=== PATIENT | male | born 1935 | race Caucasian/White ===

== ENCOUNTER → 2017-01-29 | Outpatient (CLI) | payer MEDICARE, OTHER ==
[~2017-01-29] MED LIST: /WARF5TA; ALTA5CAP; AMLO5TAB; CO Q 10; COUMADIN; DIGO0.126; PRAV10TA2; TAMB100T
[2017-01-29 12:00] LABS: INR 1.34
== END ==
LOC: M LAB 11:17
PROVIDERS: ATTEND Pain Medicine Interventional Pain Medicine
DX: M96.1 Postlaminectomy syndrome, not elsewhere classified (principal); Z79.01 Long term (current) use of anticoagulants

== ENCOUNTER → 2017-01-30 | Outpatient (CLI) | payer MEDICARE, OTHER ==
[2017-01-30 10:20] LABS: INR 1.29
== END ==
LOC: M LAB 09:17
PROVIDERS: ATTEND Pain Medicine Interventional Pain Medicine
DX: M47.817 Spondylosis without myelopathy or radiculopathy, lumbosacral region (principal); Z79.01 Long term (current) use of anticoagulants

== ENCOUNTER → 2018-01-07 | Outpatient (CLI) | payer MEDICARE, OTHER ==
[2018-01-07 11:11] LABS: BASO % 0.5 % (0.0-1.0); EOS # 0.1 10^3/uL (0.0-0.50); EOS % 1.8 % (0.0-3.0); HEMATOCRIT 42.4 % (42.0-52.0); IMMATURE GRANULOCYTE % 0.2 % (0-3.0); LYMPH # 1.7 10^3/uL (1.5-4.5); LYMPH % 25.7 % (24.0-44.0); MEAN CORPUSCULAR HEMOGLOBIN 32.2 pg (27.0-33.0); MEAN CORPUSCULAR VOLUME 97.5 fl (80.0-96.0); MONO # 0.6 10^3/uL (0.0-0.8); MONO % 9.7 % (0.0-5.0); NEUTROPHILS # 4.1 10^3/uL (1.8-7.7); NEUTROPHILS % 62.1 % (36.0-66.0); PLATELET COUNT, AUTOMATED 202 10^3/uL (150-450); RED BLOOD COUNT 4.35 10^6/uL (4.30-6.10); RED CELL DISTRIBUTION WIDTH 15.2 % (11.5-14.5); WHITE BLOOD COUNT 6.6 10^3/uL (4.0-10.0)
[2018-01-07 11:25] LABS: C REACTIVE PROTEIN QUANTITATIV 1.22 MG/DL (0.00-0.30)
[2018-01-07 11:37] LABS: ERYTHROCYTE SEDIMENTATION RATE 4 mm/hr (0-20)
== END ==
LOC: M SMT 09:46
DX: M31.6 Other giant cell arteritis (principal)
CPT/HCPCS: 86140

== ENCOUNTER → 2018-05-18 | Outpatient (CLI) | payer MEDICARE, OTHER | LOC: M WUC 11:55 | DX: M50.11 Cervical disc disorder with radiculopathy, high cervical region (principal); M50.121 Cervical disc disorder at C4-C5 level with radiculopathy; M50.122 Cervical disc disorder at C5-C6 level with radiculopathy; M50.123 Cervical disc disorder at C6-C7 level with radiculopathy | CPT/HCPCS: 72052 ==

== ENCOUNTER → 2018-11-05 | Outpatient (REF) | payer MEDICARE, OTHER ==
[~2018-11-05] MED LIST changes: -/WARF5TA; +CART240C3; +COUM1TAB17; +FLEC100T; +FURO20TA2; +LISINOPRIL-HCTZ; +ROSU5TAB4; -TAMB100T; +TERA1CAP3; +TRAM50TA2 PO; +WARF-23; +ZYLO300T6
[2018-11-05 14:15] LABS: APPEARANCE, URINE CLEAR (CLEAR); BACTERIA, URINE AUTO NEGATIVE (NEGATIVE); BILIRUBIN, URINE AUTO NEGATIVE (NEGATIVE); BLOOD, URINE BLOOD 1+ (NEGATIVE); COLOR, URINE YELLOW (YELLOW); GLUCOSE, URINE (UA) AUTO NEGATIVE (NEGATIVE); KETONE, URINE AUTO NEGATIVE (NEGATIVE); LEUKOCYTE ESTERASE, URINE AUTO NEGATIVE (NEGATIVE); NITRITE, URINE AUTO NEGATIVE (NEGATIVE); PROTEIN, URINE AUTO NEGATIVE (NEGATIVE); RBC, URINE AUTO 6 /HPF (0-3); SPECIFIC GRAVITY URINE AUTO 1.012 (1.002-1.035); SQUAMOUS EPITHELIAL CELL UR AU 0 /HPF (0-6); WBC, URINE AUTO 0 /HPF (0-3)
== END ==
LOC: M SMT 13:08
PROVIDERS: ATTEND Nurse Practitioner Family
DX: R82.8 Abnormal findings on cytological and histological examination of urine (principal)
CPT/HCPCS: 81001; 87086; 88108; G0463

== ENCOUNTER → 2018-11-08 | Outpatient (CLI) | payer MEDICARE, OTHER ==
[~2018-11-08] MED LIST changes: +/WARF5TA; -COUM1TAB17; -FLEC100T; +TAMB100T
== END ==
LOC: M WUC 13:54
PROVIDERS: ATTEND Nurse Practitioner Family
DX: Z85.46 Personal history of malignant neoplasm of prostate (principal)

== ENCOUNTER 2018-11-09 10:22 | Emergency (ER) | payer MEDICARE, OTHER ==
[~2018-11-09] VITALS: Ht 172.7 cm; Wt 86.4 kg
[~2018-11-09 10:22] MED LIST changes: -CART240C3; -FURO20TA2; -LISINOPRIL-HCTZ; -ROSU5TAB4; -TERA1CAP3; -TRAM50TA2 PO; -WARF-23; -ZYLO300T6
[2018-11-09] MEDS ORDERED: LISINOPRIL-HCTZ (10:34)
[2018-11-09] MEDS ORDERED: TRAM50TA2 PO (10:35)
[2018-11-09] MEDS ORDERED: ZYLO300T6 (10:35)
[2018-11-09] MEDS ORDERED: TERA1CAP3 (10:35)
[2018-11-09] MEDS ORDERED: ROSU5TAB4 (10:35)
[2018-11-09] MEDS ORDERED: WARF-23 (10:35)
[2018-11-09] MEDS ORDERED: CART240C3 (10:35)
[2018-11-09] MEDS ORDERED: FURO20TA2 (10:35)
[2018-11-09 11:24] LABS: BASO % 0.2 % (0.0-1.0); EOS # 0.1 10^3/uL (0.0-0.50); EOS % 1.2 % (0.0-3.0); HEMATOCRIT 41.1 % (42.0-52.0); HEMOGLOBIN 13.6 g/dl (13.5-17.5); LYMPH # 1.1 10^3/uL (1.5-4.5); LYMPH % 9.5 % (24.0-44.0); MEAN CORPUSCULAR HGB CONC 33.1 g/dl (32.0-36.5); MEAN CORPUSCULAR VOLUME 96.7 fl (80.0-96.0); MONO # 0.9 10^3/uL (0.0-0.8); MONO % 7.6 % (0.0-5.0); NEUTROPHILS # 9.1 10^3/uL (1.8-7.7); NEUTROPHILS % 81.1 % (36.0-66.0); PLATELET COUNT, AUTOMATED 273 10^3/uL (150-450); RED BLOOD COUNT 4.25 10^6/uL (4.30-6.10); WHITE BLOOD COUNT 11.2 10^3/uL (4.0-10.0)
--- NOTE | 2018-11-09 11:33 | ECGEPIP ---
Stationary ECG Study [facility] - ED Test Date: 2018-11-09 Pat Name: JESSICA MALDONADO Department: Room: - Gender: M Tube Former Operator: deng : 1935 Requested By: Cristhian Carlisle Order Number: [id number] Reading MD: Kacy Iniguez Measurements Intervals [place] Rate: 68 P: [place]: 0 QRS: 34 QRSD: 144 T: -8 QT: 463 QTc: 493 Interpretive Statements ATRIAL FIBRILLATION RIGHT BUNDLE BRANCH BLOCK NO PRIOR FOR COMPARISON Electronically Signed On 11-09-2018 11:33:34 EDT by Kacy Iniguez
[2018-11-09 11:36] LABS: INR 2.03; PROTHROMBIN TIME 23.3 SECONDS (12.1-14.4)
--- NOTE | 2018-11-09 11:45 | REP ---
CT Head without contrast HISTORY: Syncope COMPARISON: None Areas of decreased attenuation are present in the periventricular white matter. This represents small-vessel ischemic disease. There is no intraparenchymal hemorrhage, acute infarct, mass or midline shift. The ventricular system and cortical sulci as well as subarachnoid space in the posterior fossa are dilated consistent with mild volume loss. There is no extra cerebral collection. There is no fracture. The visualized sinuses are clear. IMPRESSION: 1. Small vessel ischemic disease. 2. Mild volume loss. Electronically Signed by Milton Becker MD 11/09/2018 11:36 A
[2018-11-09 12:05] LABS: CALCIUM LEVEL 8.6 MG/DL (8.8-10.2); CREATININE FOR GFR 1.24 MG/DL (0.70-1.30); MB/CK RELATIVE INDEX 2.7 (< OR =4); POTASSIUM SERUM 3.4 MEQ/L (3.5-5.1); THYROID STIMULATING HORMONE 4.19 uIU/ML (0.358-3.740); TROPONIN I 0.08 NG/ML (< 0.10)
--- NOTE | 2018-11-09 12:22 | REP ---
Chest one-view HISTORY: Syncope Comparison: 12/29/2016 The lungs are clear. The heart is normal in size. The pulmonary vasculature is normal in appearance. Impression: No acute disease. Electronically Signed by Milton Becker MD 11/09/2018 12:14 P
[2018-11-09 14:43] LABS: MB/CK RELATIVE INDEX 3.06 (< OR =4); TROPONIN I 0.06 NG/ML (< 0.10)
--- NOTE | 2018-11-09 15:19 | ECGEPIP ---
Stationary ECG Study [facility] - ED Test Date: 2018-11-09 Pat Name: JESSICA MALDONADO Department: Room: - Gender: M Paste Up Artist: deng : 1935 Requested By: Cristhian Carlisle Order Number: [id number] Reading MD: Kacy Iniguez Measurements Intervals [place] Rate: 76 P: [place]: 0 QRS: 150 QRSD: 145 T: -29 QT: 441 QTc: 498 Interpretive Statements ATRIAL FIBRILLATION INDETERMINATE AXIS RIGHT BUNDLE BRANCH BLOCK INCREASED RATE 11/09/18 10:49 Electronically Signed On 11-09-2018 15:19:46 EDT by Kacy Iniguez
[2018-11-09 15:30] VITALS: BP 134/70
== END 2018-11-09 15:33 | disposition home or self-care (01) ==
LOC: M ED 10:22
DX: R55 Syncope and collapse (principal); I48.91 Unspecified atrial fibrillation; I67.82 Cerebral ischemia; I45.10 Unspecified right bundle-branch block; K21.9 Gastro-esophageal reflux disease without esophagitis; N40.0 Benign prostatic hyperplasia without lower urinary tract symptoms; G47.33 Obstructive sleep apnea (adult) (pediatric); Z85.46 Personal history of malignant neoplasm of prostate; Z87.81 Personal history of (healed) traumatic fracture; Z88.8 Allergy status to other drugs, medicaments and biological substances; Z79.899 Other long term (current) drug therapy; Z79.01 Long term (current) use of anticoagulants

== ENCOUNTER → 2018-11-24 | Outpatient (CLI) | payer MEDICARE, OTHER ==
[~2018-11-24] MED LIST changes: -/WARF5TA; +CART240C3; +COUM1TAB17; +FLEC100T; +FURO20TA2; +ISOVUE-370 76% 125ML VIAL (Q9967 PER ML) As Ordered ONE; +LISINOPRIL-HCTZ; +ROSU5TAB4; -TAMB100T; +TERA1CAP3; +TRAM50TA2 PO; +WARF-23; +ZYLO300T6
--- NOTE | 2018-11-24 14:27 | REP ---
Clinical: Hematuria. Technique: Precontrast, contrast enhanced, and delayed images of the abdomen and pelvis using 100 ml Isovue 370 intravenous contrast material with coronal and sagittal re-formations as well as 3-D urogram. Findings: Right kidney demonstrates age-related cortical thinning along with renovascular calcifications and 2 cm and 1.5 cm simple cysts along with fewer sub centimeter hypodensities also likely representing small cysts. No hydroureteronephrosis, acute perinephric stranding, or nephroureterolithiasis appreciated. The left kidney demonstrates mild cortical thinning along with few simple cysts ranging in size from 1 cm at the lower pole to 6.1 cm along the posterior aspect of the mid/upper pole. Few nonobstructing intrarenal calculi are identified including 2.5 mm upper pole, 4.5 mm mid pole, and 1 mm lower pole calculi without acute perinephric stranding, hydroureteronephrosis or obstructing ureteral calculi. Delayed images demonstrate normal bilateral collecting system including ureters and bladder. The patient appears to be status post prostate seeding. Liver, spleen, and bilateral adrenal glands are normal. The pancreas is relatively normal although cystic changes at the head/uncinate process measuring 4.3 cm are identified and cannot be further classified or evaluated. The patient is known to be status post cholecystectomy. Evaluation of the enteric system demonstrates small hiatal hernia along with diffuse diverticulosis. No evidence for bowel obstruction or acute inflammatory process. No ascites. No adenopathy. Atherosclerotic changes to the aorta and vasculature without aortic aneurysm or dissection. Osseous structures demonstrate degenerative changes. Lung bases demonstrate bibasilar linear fibroatelectatic changes. Impression: 1. Urinary tract system demonstrates age-related cortical thinning along with bilateral cysts and left-sided nonobstructing calculi as detailed above. No hydroureteronephrosis or obstructing ureteral calculi appreciated. Bladder is essentially normal. 2. Diverticulosis. 3. Lobulated cystic area at the head of the pancreas measuring 4.3 cm maximal diameter. Differential diagnosis would include pseudocyst, benign cyst as well as possible cystic pancreatic neoplasm which cannot be excluded. 4. Small hiatal hernia. Electronically Signed by Zeb Antonio MD 11/24/2018 02:19 P
== END ==
LOC: M RAD 12:41
PROVIDERS: ATTEND Nurse Practitioner Family
DX: N28.89 Other specified disorders of kidney and ureter (principal); N28.1 Cyst of kidney, acquired; K44.9 Diaphragmatic hernia without obstruction or gangrene; K57.92 Diverticulitis of intestine, part unspecified, without perforation or abscess without bleeding; R93.5 Abnormal findings on diagnostic imaging of other abdominal regions, including retroperitoneum
CPT/HCPCS: 74178; Q9967

== ENCOUNTER → 2018-12-20 | Outpatient (REF) | payer MEDICARE, OTHER ==
[~2018-12-20] MED LIST changes: -ISOVUE-370 76% 125ML VIAL (Q9967 PER ML) As Ordered ONE
[2018-12-20 13:39] LABS: APPEARANCE, URINE CLEAR (CLEAR); BACTERIA, URINE AUTO NEGATIVE (NEGATIVE); BILIRUBIN, URINE AUTO NEGATIVE (NEGATIVE); BLOOD, URINE BLOOD NEGATIVE (NEGATIVE); COLOR, URINE YELLOW (YELLOW); GLUCOSE, URINE (UA) AUTO NEGATIVE (NEGATIVE); KETONE, URINE AUTO NEGATIVE (NEGATIVE); LEUKOCYTE ESTERASE, URINE AUTO NEGATIVE (NEGATIVE); MUCUS, URINE SMALL (NEGATIVE); NITRITE, URINE AUTO NEGATIVE (NEGATIVE); PROTEIN, URINE AUTO NEGATIVE (NEGATIVE); RBC, URINE AUTO 6 /HPF (0-3); SQUAMOUS EPITHELIAL CELL UR AU 0 /HPF (0-6); WBC, URINE AUTO 0 /HPF (0-3)
== END ==
LOC: M SMT 12:46
PROVIDERS: ATTEND Nurse Practitioner Family
DX: R31.29 Other microscopic hematuria (principal)

== ENCOUNTER → 2019-01-15 | Outpatient (CLI) | payer MEDICARE, OTHER ==
--- NOTE | 2019-01-18 09:32 | REP ---
MRCP: MRCP exam is accomplished utilizing multiple heavily T2-weighted sequences in the axial and coronal planes. MIP reconstruction images are performed. Correlation made with prior CT 11/24/2018. The patient has had a prior cholecystectomy. There is slight dilatation of the common bile duct as expected measuring 8 mm in maximum diameter. Questionable 3 mm filling defect in the proximal common bile duct could represent a tiny stone. There is no pancreatic duct dilatation. In the visualized liver, there is a hyperintense nodule on the T2-weighted images in the inferior left lobe 9 mm in diameter probably representing a small cyst or hemangioma. Visualized spleen and adrenals are unremarkable. In the pancreatic head, there is a lobulated, loculated septated cyst measuring 2.7 x 2.8 x 4.2 cm. Visualized kidneys demonstrate multiple bilateral cysts, largest is in the left upper pole posteriorly measuring approximately 6.1 cm in maximum diameter. No significant adenopathy is visualized. No free fluid is seen in the abdomen. IMPRESSION: Lobulated, loculated septated cystic mass involving the pancreatic head as discussed above. Differential diagnosis would include cystic neoplasm versus pseudocyst. Further characterization could be made with MRI with contrast. Status post cholecystectomy without significant biliary or pancreatic duct dilatation. In the inferior left lobe of the liver, there is a hyperintense nodule on T2-weighted images 9 mm in diameter probably representing a small cyst or hemangioma. Multiple bilateral renal cysts. Electronically Signed by Moses Anderson MD 01/18/2019 10:08 A
== END ==
LOC: M RAD 12:42
PROVIDERS: ATTEND Internal Medicine
DX: D37.8 Neoplasm of uncertain behavior of other specified digestive organs (principal); Z90.49 Acquired absence of other specified parts of digestive tract; K76.89 Other specified diseases of liver; N28.1 Cyst of kidney, acquired

== ENCOUNTER 2019-06-27 12:14 | Inpatient (IN) | payer MEDICARE, OTHER ==
[~2019-06-27] VITALS: Ht 175.3 cm; Wt 88.2 kg
[~2019-06-27 12:14] MED LIST changes: -CART240C3; +CART240C3 PO; -FURO20TA2; +FURO20TA2 PO; -ROSU5TAB4; +ROSU5TAB5; -TERA1CAP3; +TERA1CAP3 PO; -WARF-23; +WARF-23 PO; -ZYLO300T6; +ZYLO300T6 PO
[2019-06-27] MEDS ORDERED: POTA20TA6 PO (12:32)
[2019-06-27] MEDS ORDERED: REST0.05 OU (12:32)
[2019-06-27] MEDS ORDERED: ICAPCAP2 PO (12:32)
[2019-06-27 13:14] LABS: BASO % 0.2 % (0.0-1.0); EOS % 0.1 % (0.0-3.0); HEMATOCRIT 47.8 % (42.0-52.0); HEMOGLOBIN 15.3 g/dl (13.5-17.5); LYMPH # 0.8 10^3/uL (1.5-5.0); LYMPH % 4.1 % (24.0-44.0); MEAN CORPUSCULAR HEMOGLOBIN 32.2 pg (27.0-33.0); MEAN CORPUSCULAR VOLUME 100.6 fl (80.0-96.0); MONO # 0.8 10^3/uL (0.0-0.8); MONO % 4.3 % (0.0-5.0); NEUTROPHILS % 90.8 % (36.0-66.0); PLATELET COUNT, AUTOMATED 208 10^3/uL (150-450); RED BLOOD COUNT 4.75 10^6/uL (4.30-6.10); WHITE BLOOD COUNT 18.7 10^3/uL (4.0-10.0)
[2019-06-27 13:15] LABS: INR 2.59; PROTHROMBIN TIME 27.6 SECONDS (11.8-14.0)
[2019-06-27 13:16] LABS: PARTIAL THROMBOPLASTIN TIME 37.3 SECONDS (25.0-38.4)
[2019-06-27 13:27] LABS: ALBUMIN 3.6 GM/DL (3.2-5.2); ALT/SGPT 21 U/L (12-78); BILIRUBIN,DIRECT 0.5 MG/DL (0.0-0.2); BILIRUBIN,TOTAL 1.4 MG/DL (0.2-1.0); BLOOD UREA NITROGEN 22 MG/DL (7-18); CALCIUM LEVEL 9.3 MG/DL (8.8-10.2); CARBON DIOXIDE LEVEL 29 MEQ/L (21-32); CHLORIDE LEVEL 105 MEQ/L (98-107); CREATININE FOR GFR 1.17 MG/DL (0.70-1.30); GLOMERULAR FILTRATION RATE > 60.0 (>35); GLUCOSE, FASTING 126 MG/DL (70-100); LIPASE 70 U/L (73-393); POTASSIUM SERUM 3.5 MEQ/L (3.5-5.1); SODIUM LEVEL 142 MEQ/L (136-145); TOTAL PROTEIN 6.5 GM/DL (6.4-8.2)
[2019-06-27] MEDS: NS 1,000 ML IV SCH ×5 (13:28→20:08)
[2019-06-27] MEDS ORDERED: PANTOPRAZOLE 40MG INJ (PROTONIX) (C9113) IV ONE (13:30)
[2019-06-27] MEDS ORDERED: ISOVUE-370 76% 100ML VIAL (Q9967) As Ordered ONE (13:36)
[2019-06-27] MEDS ORDERED: COQ1200C3 PO (14:04)
[2019-06-27] MEDS ORDERED: WARF-23 PO (14:04)
[2019-06-27] MEDS ORDERED: LISI20TA19 PO (14:04)
--- NOTE | 2019-06-27 14:24 | REP ---
CT ABDOMEN AND PELVIS WITH IV BUT WITHOUT ORAL CONTRAST: HISTORY: Left-sided abdomen pain. Rectal bleeding. Comparison CT study November 24, 2018. The patient gives a history prostate carcinoma. CT contrast dose: 100 mL of intravenous Isovue 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 There are clips in the right upper quadrant post cholecystectomy. The liver and the spleen are normal in size homogeneous in texture. Cardiomegaly is observed. No adrenal mass is observed on either side. The right kidney shows moderate atrophy. There are bilateral renal cortical cysts. The largest cyst is at the upper pole of the left kidney measuring 7.1 cm in greatest diameter. Vascular calcification is noted in the renal arteries on the right. There is an intrarenal calculus in the upper pole of the left kidney measuring 4 mm in greatest diameter. No hydronephrosis is seen on either side. A larger calculus is seen in the lower pole collecting system of the left kidney. This calculus measures 6 mm in diameter. A 2 mm calculus is also noted in the lower pole collecting system of the left kidney. Previously noted pancreatic head cystic lesion is again visible. This is essentially unchanged measuring 4.1 cm in greatest diameter. No focal hepatic lesion is seen. There is a tiny left lobe hepatic cyst. Vascular calcification is seen in the aorta and its branches. No aneurysm is seen. There is left colonic diverticulosis. There is an elongate area of mural thickening with some pericolonic stranding in the distal descending, mid descending and sigmoid segment of the colon. This may reflect diverticulitis or enterocolitis. No abscess or free air is seen. No evidence of large or small bowel obstruction noted. No abdominal wall defect is seen. There are prostate seeds noted in place. Seminal vesicles and urinary bladder are unremarkable. No bony destructive lesion is appreciated. IMPRESSION: Mural thickening and diverticulosis in the left colon. Enterocolitis versus diverticulitis. No abscess or free air. Intrarenal nephrolithiasis left kidney without hydronephrosis. Stable pancreatic head cystic lesion. Electronically Signed by Yves Hayes MD 06/27/2019 06:50 P
[2019-06-27] MEDS ORDERED: ERTAPENEM SODIUM 1 GM in NS MINI-BAG PLUS 50 ML IV ONE (14:30)
[2019-06-27] MEDS ORDERED: traMADol 50 MG TAB PO PRN (15:15)
[2019-06-27] MEDS ORDERED: MAALOX 30 ML SUSP *UDC PO PRN (15:15)
[2019-06-27] MEDS ORDERED: ACETAMINOPHEN TAB 650MG DOSE (2X325MG) PO PRN (15:15)
[2019-06-27] MEDS ORDERED: MOM 30ML SUSPENSION UDC PO PRN (15:15)
--- NOTE | 2019-06-27 15:30 | HPEPDOC ---
General Date of Admission 06/27/19 Date of Service: Jun 27, 2019 Chief Complaint The patient is a 84-year-old male admitted with a reason for visit of Gi Bleeding. Home Medications Scheduled Allopurinol (Zyloprim) 300 Mg Tab, 300 MG PO QPM, (Reported) Cyclosporine (Restasis) 0.05% Droperette, 1 DROP OU BID, (Reported) Diltiazem HCl (Cartia Xt) 240 Mg Cap, 240 MG PO DAILY, (Reported) TAKES AT NOON Furosemide (Furosemide) 20 Mg Tab, 20 MG PO DAILY, (Reported) Lisinopril/Hydrochlorothiazide (Lisinopril-Hctz 20-12.5 mg Tab) 1 Each Tablet, 1 TAB PO BID, (Reported) Potassium Chloride (Potassium Chloride) 20 Meq Tab.er.prt, 20 MEQ PO DAILY, (Reported) Terazosin HCl (Terazosin HCl) 1 Mg Cap, 1 MG PO QPM, (Reported) Ubidecarenone (Co Q10) 200 Mg Capsule, 200 MG PO DAILY, (Reported) Vit A/Vit C/Vit E/Zinc/Copper (Icaps Areds Softgel) 1 Each Capsule, 1 CAP PO DAILY, (Reported) Warfarin Sodium (Warfarin Sodium) 5 Mg Tab, 5 MG PO 3XW, (Reported) QPM: MON, WED, FRI Warfarin Sodium (Warfarin Sodium) 5 Mg Tablet, 2.5 MG PO 4XWK, (Reported) QPM: SUN, TUES, THURS, SAT Scheduled PRN Tramadol HCl (Tramadol HCl) 50 Mg Tab, 50 MG PO TID PRN for PAIN, (Reported) Allergies Coded Allergies: doxazosin (Verified Allergy, Unknown, 06/27/19) Past Medical History Medical History Prostate cancer, radiation proctitis, atrial fibrillation, hypertension, gout Surgical History States CA laminectomy, partial cystectomy, right TKA, left TKA Social History * Smoker: Denies Alcohol: Denies Drugs: denies A-FIB/CHADSVASC A-FIB History Current/History of A-Fib/PAF?: Yes Current PO Anticoag Therapy: Yes Review of Systems Constitutional: Denies: Chills, Fever, Malaise, Night Sweats, Weakness, Fatigue, Weight Loss, Lethargy, Other Eyes: Denies: Pain, Vision change, Conjunctivae inflammation, Eyelid inflamm ation, Redness, Other ENT: Denies: Head Aches, Ear Pain, Dysphagia, Sinus Congestion, Post Nasal Drip, Sore Throat, Epistaxis, Other Symptoms Pulmonary: Denies: Dyspnea, Cough, Pleuritic Chest Pain, Other Symptoms Cardiovascular: Denies: Chest Pain, Palpitations, Orthopnea, Paroxysmal Noc. Dyspnea, Edema, Lt Headedness, Other Symptoms Gastrointestinal: Reports: Abdominal Pain, Other Symptoms (right great blood per rectum) Hematologic: Denies: Bruising, Bleeding Excessively, Petecchia, Purpura, Enlarged Lymph Nodes, Other Hematologic Endocrine: Denies: Polydipsia, Polyphagia, Polyuria, Heat Intolerance, Cold Intolerance, Other Endocrine Sx Musculoskeletal: Denies: Neck Pain, Back Pain, Shoulder Pain, Arm Pain, Hand Pain, Leg Pain, Foot Pain, Joint Pain, Muscle Pain, Spasms, Other Symptoms Neurological: Denies: Weakness, Numbness, Incoordination, Change in speech, Confusion, Seizures, Other Symptoms Psych: Denies: Mood Normal, Anxiety, Depression, Memory Issues, Thoughts of Self Harm, Anger, Thoughts of Harming Other, Other Psych Physical Examination General Exam: Positive: Alert, Cooperative Eye Exam: Positive: PERRLA, Conjunctiva & lids normal ENT Exam: Positive: Atraumatic, Mucous membr. moist/pink Neck Exam: Positive: Supple Chest Exam: Positive: Clear to auscultation, Normal air movement Heart Exam: Positive: Rate Normal, Normal S1, Normal S2 Abdomen Exam: Positive: Normal bowel sounds, Soft, Tenderness (. Also tenderness of right lower quadrant on deep palpation. No rebound tenderness) Extremity Exam: Positive: Normal pulses Skin Exam: Positive: Nl turgor and temperature Neuro Exam: Positive: Strength at 5/5 X4 ext, Sensation Intact Psych Exam: Positive: Mental status NL, Mood NL, Oriented x 3 Vital Signs Vital Signs Date Time Temp Pulse Resp B/P (MAP) Pulse Ox O2 Delivery O2 Flow Rate FiO2 06/27/19 12:30 Room Air 06/27/19 12:30 06/27/19 12:14 96.1 52 20 99 Laboratory Data Labs 24H Laboratory Tests 2 06/27/19 12:31: Prothrombin Time 27.6H, Prothromb Time International Ratio 2.59, Activated Partial Thromboplast Time 37.3 06/27/19 12:45: Immature Granulocyte % (Auto) 0.5, Neutrophils (%) (Auto) 90.8H, Lymphocytes (%) (Auto) 4.1L, Monocytes (%) (Auto) 4.3, Eosinophils (%) (Auto) 0.1, Basophils (%) (Auto) 0.2, Neutrophils # (Auto) 17.0H, Lymphocytes # (Auto) 0.8L, Monocytes # (Auto) 0.8, Eosinophils # (Auto) 0.0, Basophils # (Auto) 0.0, Nucleated Red Blood Cells % (auto) 0.0 06/27/19 13:00: Anion Gap 8, Glomerular Filtration Rate > 60.0, Calcium Level 9.3, Total Bilirubin 1.4H, Direct Bilirubin 0.5H, Aspartate Amino Transf (AST/SGOT) 24, Alanine Aminotransferase (ALT/SGPT) 21, Alkaline Phosphatase 94, Total Protein 6.5, Albumin 3.6, Albumin/Globulin Ratio 1.24, Lipase 70L CBC/BMP Laboratory Tests 06/27/19 12:45 06/27/19 13:00 Problems (1) Diverticulitis Status: Acute Problem Text: 84 years old white male with past medical history of CA prostate status post radiation proctitis, hypertension, atrial fibrillation on Coumadin, developed right lower quadrant pain along with passage of bright red blood per rectum since this morning. Patient has a history of radiation proctitis and also CT of the abdomen and pelvis was consistent with possible acute diverticulitis/enterocolitis. Patient also on anticoagulation with Coumadin, which can because of diverticular bleed as well. Dr. Saenz was called from ED and has recommended to admit patient. Hold Coumadin and he will perform possible: Colonoscopy in 2-3 days Admit patient to [facility] with telemetry. Considering history of A. fib and acute GI bleed Continue director apparel CBC after 6 hours CBC in a.m. 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
--- NOTE | 2019-06-27 16:36 | ECGEPIP ---
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
--- NOTE | 2019-06-27 17:43 | CR.PDOC ---
General Date of Consultation: Jun 27, 2019 Referring Provider: BALAJI LING MD Attending Physician: GEORGIA CONWAY MD Consultation Primary physician/ hospitalist: Dr. Ling / Dr. Santos Alvarenga Reason for consult: Recal bleeding. HPI: 84-year-old male patient with history of prostate cancer s/p radiation therapy, complicated by radiation proctitis, HTN, atrial fibrillation on Coumadin, gout, presented to ER for complaints of bright red blood per rectum. GI was consulted for the same. Patient reports his symptoms started this morning, with multiple bloody, diarrheal bowel movements, up to 8 bowel movements today, associated with moderate to severe left lower quadrant abdominal pain. Patient denies any dizziness, loss of conscious ness and no sick contacts or recent travel. Patient does report having a dental procedure recently for which he has to stop his anticoagulation for few days. Pertinent negative GI symptoms: Patient denies nausea, vomiting, loss of appetite, early satiety or unintentional weight loss. No history of hematemesis. Review of Systems: GI: as stated above CVS: No chest pain, No palpitations, No leg swelling. RS: No Shortness of breath, No Wheezing, no cough NETWORK DESKTOP SUPPORT SPECIALIST: No dizziness, No motor weakness, No sensory problems Hematology: No bruising, No gum bleeding, Musculoskeletal: No joint pain, ambulating well. Skin: No rash : No hematuria, No burning sensation of the urine ENT: No ear discharge/ pain, No dysphagia. Eyes: No photophobia. Home medications: reviewed. Antithrombotic agents - Coumadin Medical h/o: As above. Surgical h/o: Cholecystectomy. Social h/o: Alcohol-denies, tobacco-denies , IVDA/ drugs-denies. Family h/o of GI cancers -noncontributory Prior Endoscopies: Previously had EGD and colonoscopy at [place] by Dr. Georgette Hopkins -- noted to have barretts in last EGD done in October 2018. ( other reports not available, but patient reports his colonoscopy showed small polyp and he was told no need to repeat the Colonoscopy due to his age.) Prior GI evaluation: None In [facility]. Exam: Vitals: reviewed General: Alert and oriented x 3, not in distress HEENT: NO pallor, no icterus. Normal oropharynx, NO cervical lymph nodes. Chest: symmetric with bilateral clear air entry, CVS: S1, S2 heard, normal, no murmurs . Abdomen: non-distended, no surgical scars, soft, minimal tenderness in left lower quadrant, no palpable masses, normal bowel sounds heard. Rectal exam: Patient refused / Deferred at this time in view of scheduled colonoscopy. Extremities: no pedal edema, pulses palpable. NETWORK DESKTOP SUPPORT SPECIALIST: no focal motor or sensory deficits. Moves all extremities Skin: no rash. Labs: reviewed.. Imaging tests: reviewed CT abdomen with IV contrast : Reported to me oral thickening and diverticulosis in the left colon, suspected enterocolitis versus diverticulitis. Impression: - Acute onset rectal bleeding with left lower quadrant abdominal pain and CT scan showing mural thickening -- DDx-- Likely ischemic colitis vs Infectious colitis vs Less likely Diverticular bleeding vs Colon polyps. Recommendations: - Patient educated about the test results, possible differential diagnoses and All questions answered. - Adequate oral and IV hydration. Avoid Hypotension. - Keep on Clear liquid diet. - Obtain stool testing for infectious panel. - Give empiric antibiotics- consider Ciprofloxacin and metronidazole if not contraindicated. - Monitor H/H and transfuse if needed to maintain hemoglobin levels around 8 gm/dL. - Discussed the risks and benefits of anticoagulation. Will hold Coumadin for now fo 1-2 days with close monitoring of INR. To resume Coumadin after 2 days to avoid sub-therapeutic INR. - Will consider Colonoscopy work up based on the clinical course. - The procedure, indications, risks (bleeding, perforation, infection, hypotension, respiratory depression, allergy, need for endotracheal intubation, surgery, colostomy, cardiac arrest, even ), benefits, limitations (e.g., missing a lesion), and all other alternatives (including no intervention) were explained to the patient who understood and agreed for the procedure. Plan of care discussed with patient and primary team. Patient verbalized understanding and agreed with the plan. Vital Signs/I&O Vital Signs Date Time Temp Pulse Resp B/P (MAP) Pulse Ox O2 Delivery O2 Flow Rate FiO2 06/27/19 16:12 92 210/98 06/27/19 12:30 Room Air 06/27/19 12:14 96.1 20 99 Laboratory Data CBC/BMP Laboratory Tests 06/27/19 12:45 06/27/19 13:00 Allergies Coded Allergies: doxazosin (Verified Allergy, Unknown, 06/27/19) Home Medications Scheduled Allopurinol (Zyloprim) 300 Mg Tab, 300 MG PO QPM, (Reported) Cyclosporine (Restasis) 0.05% Droperette, 1 DROP OU BID, (Reported) Diltiazem HCl (Cartia Xt) 240 Mg Cap, 240 MG PO DAILY, (Reported) TAKES AT NOON Furosemide (Furosemide) 20 Mg Tab, 20 MG PO DAILY, (Reported) Lisinopril/Hydrochlorothiazide (Lisinopril-Hctz 20-12.5 mg Tab) 1 Each Tablet, 1 TAB PO BID, (Reported) Potassium Chloride (Potassium Chloride) 20 Meq Tab.er.prt, 20 MEQ PO DAILY, (Reported) Terazosin HCl (Terazosin HCl) 1 Mg Cap, 1 MG PO QPM, (Reported) Ubidecarenone (Co Q10) 200 Mg Capsule, 200 MG PO DAILY, (Reported) Vit A/Vit C/Vit E/Zinc/Copper (Icaps Areds Softgel) 1 Each Capsule, 1 CAP PO DAILY, (Reported) Warfarin Sodium (Warfarin Sodium) 5 Mg Tab, 5 MG PO 3XW, (Reported) QPM: MON, WED, FRI Warfarin Sodium (Warfarin Sodium) 5 Mg Tablet, 2.5 MG PO 4XWK, (Reported) QPM: SUN, TUES, THURS, SAT Scheduled PRN Tramadol HCl (Tramadol HCl) 50 Mg Tab, 50 MG PO TID PRN for PAIN, (Reported) GEORGIA CONWAY MD Jun 27, 2019 17:43
[2019-06-27 19:05] VITALS: BP 175/79
[2019-06-27] MEDS: TERAZOSIN 1 MG CAP PO SCH (20:52)
[2019-06-27] MEDS: ALLOPURINOL 300 MG TAB PO SCH (20:52)
[2019-06-27] MEDS: DOCUSATE SODIUM 100 MG CAP PO SCH (20:52)
[2019-06-27 22:00] VITALS: BP 168/81
[2019-06-28] MEDS: NS 1,000 ML IV SCH ×2 (00:42→17:36)
[2019-06-28 02:52] LABS: MAGNESIUM LEVEL 1.8 MG/DL (1.8-2.4)
[2019-06-28 04:00] VITALS: BP 155/85
[2019-06-28 06:00] VITALS: BP 158/85
[2019-06-28 07:00] LABS: HEMATOCRIT 41.1 % (42.0-52.0); HEMOGLOBIN 13.5 g/dl (13.5-17.5); MEAN CORPUSCULAR HEMOGLOBIN 31.7 pg (27.0-33.0); MEAN CORPUSCULAR HGB CONC 32.8 g/dl (32.0-36.5); MEAN CORPUSCULAR VOLUME 96.5 fl (80.0-96.0); PLATELET COUNT, AUTOMATED 185 10^3/uL (150-450); RED BLOOD COUNT 4.26 10^6/uL (4.30-6.10); WHITE BLOOD COUNT 14.9 10^3/uL (4.0-10.0)
[2019-06-28 07:11] LABS: INR 2.84; PROTHROMBIN TIME 29.7 SECONDS (11.8-14.0)
[2019-06-28 07:45] LABS: BLOOD UREA NITROGEN 17 MG/DL (7-18); CALCIUM LEVEL 8.2 MG/DL (8.8-10.2); CARBON DIOXIDE LEVEL 29 MEQ/L (21-32); CHLORIDE LEVEL 106 MEQ/L (98-107); CREATININE FOR GFR 0.87 MG/DL (0.70-1.30); GLOMERULAR FILTRATION RATE > 60.0 (>35); GLUCOSE, FASTING 108 MG/DL (70-100); POTASSIUM SERUM 2.8 MEQ/L (3.5-5.1); SODIUM LEVEL 142 MEQ/L (136-145)
[2019-06-28] MEDS: DOCUSATE SODIUM 100 MG CAP PO SCH ×2 (09:00→21:13)
[2019-06-28] MEDS: CIPROFLOXACIN 400 MG in IV 1 EA IV SCH ×2 (09:04→21:13)
[2019-06-28] MEDS: CO-ENZYME Q10 50 MG CAP PO SCH (09:04)
[2019-06-28 10:00] VITALS: BP_SYST 142; BP_SYST 168; BP_DIAS 67; BP_DIAS 81
[2019-06-28] MEDS: metroNIDAZOLE 500 MG in IV 1 EA IV SCH ×2 (10:15→17:36)
--- NOTE | 2019-06-28 11:13 | IPNPDOC ---
Subjective Date Seen The patient was seen on 06/28/19. Subjective Chief Complaint/HPI Patient is slightly better but is still complaining of abdominal pain General: Denies: ROS Unobtainable, Chills, Night Sweats, Fatigue, Malaise, Normal Appetite, Other Symptoms Constitutional: Denies: Chills, Fever, Malaise, Night Sweats, Weakness, Fatigue, Weight Loss, Lethargy, Other Skin: Denies: Rash, Lesions, Jaundice, Bruising, Itching, Dry, Breakdown, Nail Changes, Other Pulmonary: Denies: Dyspnea, Cough, Pleuritic Chest Pain, Other Symptoms Cardiovascular: Denies: Chest Pain, Palpitations, Orthopnea, Paroxysmal Noc. Dyspnea, Edema, Lt Headedness, Other Symptoms Gastrointestinal: Reports: Abdominal Pain Musculoskeletal: Denies: Neck Pain, Back Pain, Shoulder Pain, Arm Pain, Hand Pain, Leg Pain, Foot Pain, Joint Pain, Muscle Pain, Spasms, Other Symptoms Neurological: Denies: Weakness, Numbness, Incoordination, Change in speech, Confusion, Seizures, Other Symptoms Objective Physical Examination General Exam: Positive: Alert, Cooperative Neck Exam: Positive: Supple Chest Exam: Positive: Clear to auscultation, Normal air movement Heart Exam: Positive: Rate Normal, Normal S1, Normal S2 Abdomen Exam: Positive: Normal bowel sounds, Soft, Tenderness (. Also tenderness of right lower quadrant on deep palpation. 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 Saenz H&H is stable at 13.5 and 41 Will continue monitoring patient's H&H (2) Diverticulitis Status: Acute Problem Text: Continue IV fluids Antibiotics changed to Cipro and Flagyl Improving progressively Monitor lab work (3) HTN (hypertension) Status: Chronic Problem Text: Continue home meds (4) Chronic atrial fibrillation Status: Chronic Problem Text: Continue home meds coumadin still on hold till sigmoidoscopies done Plan/VTE VTE Prophylaxis Ordered?: Yes VS, I&O, 24H, [facility] Vital Signs/I&O Vital Signs Date Time Temp Pulse Resp B/P (MAP) Pulse Ox O2 Delivery O2 Flow Rate FiO2 06/28/19 09:02 82 158/85 06/28/19 06:00 98.8 18 99 06/27/19 18:00 Room Air I&O- Last 24 Hours up to 6 AM 06/28/19 06:00 Intake Total 1516 ml Output Total 790 ml Balance 726 ml Laboratory Data 24H LABS Laboratory Tests 2 06/27/19 12:31: Prothrombin Time 27.6H, Prothromb Time International Ratio 2.59, Activated Partial Thromboplast Time 37.3 06/27/19 12:45: Immature Granulocyte % (Auto) 0.5, Neutrophils (%) (Auto) 90.8H, Lymphocytes (%) (Auto) 4.1L, Monocytes (%) (Auto) 4.3, Eosinophils (%) (Auto) 0.1, Basophils (%) (Auto) 0.2, Neutrophils # (Auto) 17.0H, Lymphocytes # (Auto) 0.8L, Monocytes # (Auto) 0.8, Eosinophils # (Auto) 0.0, Basophils # (Auto) 0.0, Nucleated Red Blood Cells % (auto) 0.0 06/27/19 13:00: Anion Gap 8, Glomerular Filtration Rate > 60.0, Calcium Level 9.3, Magnesium Level 1.8, Total Bilirubin 1.4H, Direct Bilirubin 0.5H, Aspartate Amino Transf (AST/SGOT) 24, Alanine Aminotransferase (ALT/SGPT) 21, Alkaline Phosphatase 94, Total Protein 6.5, Albumin 3.6, Albumin/Globulin Ratio 1.24, Lipase 70L 06/28/19 05:58: Prothrombin Time 29.7H, Prothromb Time International Ratio 2.84, Nucleated Red Blood Cells % (auto) 0.0, Anion Gap 7L, Glomerular Filtration Rate > 60.0, Calcium Level 8.2L CBC/BMP Laboratory Tests 06/27/19 12:45 06/27/19 13:00 06/28/19 05:58 BALAJI LING MD Jun 28, 2019 11:13
[2019-06-28] MEDS: KCL 10MEQ/100ML SWI (KRUN) 10 MEQ in IV 1 EA IV SCH ×2 (11:30→13:27)
[2019-06-28 14:00] VITALS: BP 139/65
[2019-06-28] MEDS ORDERED: ERTAPENEM SODIUM 1 GM in NS MINI-BAG PLUS 50 ML IV SCH (15:00)
[2019-06-28 18:00] VITALS: BP 143/82
[2019-06-28] MEDS: ALLOPURINOL 300 MG TAB PO SCH (21:13)
[2019-06-28] MEDS: TERAZOSIN 1 MG CAP PO SCH (21:16)
[2019-06-28 22:00] VITALS: BP 148/79
[2019-06-29 02:00] VITALS: BP 144/66
[2019-06-29] MEDS: metroNIDAZOLE 500 MG in IV 1 EA IV SCH ×3 (02:01→16:38)
[2019-06-29 06:00] VITALS: BP 130/71
[2019-06-29 06:04] LABS: BASO % 0.2 % (0.0-1.0); EOS # 0.1 10^3/uL (0.0-0.5); EOS % 0.5 % (0.0-3.0); HEMOGLOBIN 12.3 g/dl (13.5-17.5); LYMPH # 1.8 10^3/uL (1.5-5.0); LYMPH % 13.4 % (24.0-44.0); MEAN CORPUSCULAR HEMOGLOBIN 32.8 pg (27.0-33.0); MEAN CORPUSCULAR HGB CONC 33.2 g/dl (32.0-36.5); MEAN CORPUSCULAR VOLUME 98.7 fl (80.0-96.0); MONO # 0.9 10^3/uL (0.0-0.8); MONO % 6.4 % (0.0-5.0); NEUTROPHILS # 10.5 10^3/uL (1.5-8.5); NEUTROPHILS % 78.8 % (36.0-66.0); PLATELET COUNT, AUTOMATED 164 10^3/uL (150-450); RED BLOOD COUNT 3.75 10^6/uL (4.30-6.10); WHITE BLOOD COUNT 13.3 10^3/uL (4.0-10.0)
[2019-06-29 06:13] LABS: INR 2.73; PROTHROMBIN TIME 28.8 SECONDS (11.8-14.0)
[2019-06-29 06:42] LABS: ALBUMIN 2.2 GM/DL (3.2-5.2); ALT/SGPT 12 U/L (12-78); BILIRUBIN,TOTAL 1.6 MG/DL (0.2-1.0); BLOOD UREA NITROGEN 13 MG/DL (7-18); CALCIUM LEVEL 7.5 MG/DL (8.8-10.2); CARBON DIOXIDE LEVEL 29 MEQ/L (21-32); CHLORIDE LEVEL 109 MEQ/L (98-107); CREATININE FOR GFR 0.84 MG/DL (0.70-1.30); GLOMERULAR FILTRATION RATE > 60.0 (>35); GLUCOSE, FASTING 103 MG/DL (70-100); POTASSIUM SERUM 3.1 MEQ/L (3.5-5.1); SODIUM LEVEL 142 MEQ/L (136-145); TOTAL PROTEIN 4.8 GM/DL (6.4-8.2)
[2019-06-29] MEDS: NS 1,000 ML IV SCH ×3 (06:49→16:41)
[2019-06-29] MEDS: CO-ENZYME Q10 50 MG CAP PO SCH (08:17)
[2019-06-29] MEDS: CIPROFLOXACIN 400 MG in IV 1 EA IV SCH ×2 (08:17→20:43)
[2019-06-29] MEDS: DOCUSATE SODIUM 100 MG CAP PO SCH ×2 (08:46→20:43)
--- NOTE | 2019-06-29 11:04 | IPNPDOC ---
Subjective Date Seen The patient was seen on 06/29/19. Subjective Chief Complaint/HPI The patient is pain is much improved but still has some pain on his right lower quadrant General: Denies: ROS Unobtainable, Chills, Night Sweats, Fatigue, Malaise, Normal Appetite, Other Symptoms Skin: Denies: Rash, Lesions, Jaundice, Bruising, Itching, Dry, Breakdown, Nail Changes, Other Pulmonary: Denies: Dyspnea, Cough, Pleuritic Chest Pain, Other Symptoms Cardiovascular: Denies: Chest Pain, Palpitations, Orthopnea, Paroxysmal Noc. Dyspnea, Edema, Lt Headedness, Other Symptoms Gastrointestinal: Reports: Abdominal Pain; Denies: Nausea, Vomiting, Diarrhea, Constipation, Melena, Hematochezia, Other Symptoms Musculoskeletal: Denies: Neck Pain, Back Pain, Shoulder Pain, Arm Pain, Hand Pain, Leg Pain, Foot Pain, Joint Pain, Muscle Pain, Spasms, Other Symptoms Neurological: Denies: Weakness, Numbness, Incoordination, Change in speech, Confusion, Seizures, Other Symptoms Objective Physical Examination Neck Exam: Positive: Supple Chest Exam: Positive: Clear to auscultation, Normal air movement Heart Exam: Positive: Rate Normal, Normal S1, Normal S2 Abdomen Exam: Positive: Normal bowel sounds, Soft, Tenderness (. 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 Saenz yesterday, but bleeding, most likely secondary to radiation proctitis are ischemic colitis Is scheduled for sigmoidoscopy. Once INR is subtherapeutic, patient's INR today is 2.73 Continue IV antibiotics Will continue monitoring patient's H&H (2) Diverticulitis Status: Acute Problem Text: Continue IV fluids Antibiotics changed to Cipro and Flagyl Improving progressively Continue IV antibiotics (3) HTN (hypertension) Status: Chronic Problem Text: Continue home meds (4) Chronic atrial fibrillation Status: Chronic Problem Text: Continue home meds coumadin still on hold till sigmoidoscopies done Plan/VTE VTE Prophylaxis Ordered?: Yes VS, I&O, 24H, Fishbone Vital Signs/I&O Vital Signs Date Time Temp Pulse Resp B/P (MAP) Pulse Ox O2 Delivery O2 Flow Rate FiO2 06/29/19 08:18 75 130/71 06/29/19 06:00 98.5 18 96 Room Air I&O- Last 24 Hours up to 6 AM 06/29/19 06:00 Intake Total 2270 ml Output Total 770 ml Balance 1500 ml Laboratory Data 24H LABS Laboratory Tests 2 06/29/19 05:47: Immature Granulocyte % (Auto) 0.7, Neutrophils (%) (Auto) 78.8H, Lymphocytes (%) (Auto) 13.4L, Monocytes (%) (Auto) 6.4H, Eosinophils (%) (Auto) 0.5, Basophils (%) (Auto) 0.2, Neutrophils # (Auto) 10.5H, Lymphocytes # (Auto) 1.8, Monocytes # (Auto) 0.9H, Eosinophils # (Auto) 0.1, Basophils # (Auto) 0.0, Nucleated Red Blood Cells % (auto) 0.0, Prothrombin Time 28.8H, Prothromb Time International Ratio 2.73, Anion Gap 4L, Glomerular Filtration Rate > 60.0, Calcium Level 7.5L, Total Bilirubin 1.6H, Aspartate Amino Transf (AST/SGOT) 12, Alanine Aminotransferase (ALT/SGPT) 12, Alkaline Phosphatase 67, Total Protein 4.8#L, Albumin 2.2#L, Albumin/Globulin Ratio 0.85L CBC/BMP Laboratory Tests 06/29/19 05:47 BALAJI LING MD Jun 29, 2019 11:04
[2019-06-29 14:00] VITALS: BP 132/72
[2019-06-29] MEDS ORDERED: POTASSIUM CHLORIDE 10 MEQ SR TABLET PO ONE (14:15)
[2019-06-29 20:00] VITALS: BP 161/89
[2019-06-29] MEDS: ALLOPURINOL 300 MG TAB PO SCH (20:43)
[2019-06-29] MEDS: TERAZOSIN 1 MG CAP PO SCH (20:44)
[2019-06-30 02:00] VITALS: BP 146/93
[2019-06-30] MEDS: metroNIDAZOLE 500 MG in IV 1 EA IV SCH ×3 (02:21→19:56)
[2019-06-30] MEDS: NS 1,000 ML IV SCH ×3 (02:21→23:15)
[2019-06-30 06:00] VITALS: BP 140/90
[2019-06-30 06:19] LABS: BASO % 0.3 % (0.0-1.0); EOS # 0.2 10^3/uL (0.0-0.5); EOS % 2.5 % (0.0-3.0); HEMATOCRIT 35.8 % (42.0-52.0); HEMOGLOBIN 11.7 g/dl (13.5-17.5); LYMPH # 1.6 10^3/uL (1.5-5.0); LYMPH % 17.7 % (24.0-44.0); MEAN CORPUSCULAR HEMOGLOBIN 32.1 pg (27.0-33.0); MEAN CORPUSCULAR HGB CONC 32.7 g/dl (32.0-36.5); MEAN CORPUSCULAR VOLUME 98.4 fl (80.0-96.0); MONO # 0.7 10^3/uL (0.0-0.8); MONO % 8.1 % (0.0-5.0); NEUTROPHILS # 6.2 10^3/uL (1.5-8.5); NEUTROPHILS % 71.1 % (36.0-66.0); PLATELET COUNT, AUTOMATED 163 10^3/uL (150-450); RED BLOOD COUNT 3.64 10^6/uL (4.30-6.10); WHITE BLOOD COUNT 8.8 10^3/uL (4.0-10.0)
[2019-06-30 06:29] LABS: INR 2.37; PROTHROMBIN TIME 25.7 SECONDS (11.8-14.0)
[2019-06-30 06:41] LABS: ALBUMIN 2.3 GM/DL (3.2-5.2); ALT/SGPT 11 U/L (12-78); BILIRUBIN,TOTAL 1.3 MG/DL (0.2-1.0); BLOOD UREA NITROGEN 11 MG/DL (7-18); CALCIUM LEVEL 7.5 MG/DL (8.8-10.2); CARBON DIOXIDE LEVEL 27 MEQ/L (21-32); CHLORIDE LEVEL 112 MEQ/L (98-107); CREATININE FOR GFR 0.88 MG/DL (0.70-1.30); GLOMERULAR FILTRATION RATE > 60.0 (>35); GLUCOSE, FASTING 91 MG/DL (70-100); POTASSIUM SERUM 3.2 MEQ/L (3.5-5.1); SODIUM LEVEL 143 MEQ/L (136-145); TOTAL PROTEIN 4.8 GM/DL (6.4-8.2)
[2019-06-30] MEDS ORDERED: KCL 10MEQ/100ML SWI (KRUN) 10 MEQ in IV 1 EA IV SCH (08:00)
[2019-06-30] MEDS: CO-ENZYME Q10 50 MG CAP PO SCH (09:00)
[2019-06-30] MEDS: DOCUSATE SODIUM 100 MG CAP PO SCH ×2 (09:00→19:56)
[2019-06-30] MEDS: CIPROFLOXACIN 400 MG in IV 1 EA IV SCH ×2 (09:02→21:52)
[2019-06-30 10:00] VITALS: BP 164/74
[2019-06-30] MEDS: KCL 10MEQ/100ML SWI (KRUN) 10 MEQ in IV 1 EA IV SCH ×2 (10:23→12:58)
--- NOTE | 2019-06-30 10:32 | IPNPDOC ---
Subjective Date Seen The patient was seen on 06/30/19. Subjective Chief Complaint/HPI Patient was minimum. Rectal bleeding at this point. Offers no new complaints General: Denies: ROS Unobtainable, Chills, Night Sweats, Fatigue, Malaise, Normal Appetite, Other Symptoms Skin: Denies: Rash, Lesions, Jaundice, Bruising, Itching, Dry, Breakdown, Nail Changes, Other Pulmonary: Denies: Dyspnea, Cough, Pleuritic Chest Pain, Other Symptoms Gastrointestinal: Denies: Nausea, Vomiting, Abdominal Pain, Diarrhea, Constipation, Melena, Hematochezia, Other Symptoms Musculoskeletal: Denies: Neck Pain, Back Pain, Shoulder Pain, Arm Pain, Hand Pain, Leg Pain, Foot Pain, Joint Pain, Muscle Pain, Spasms, Other Symptoms Neurological: Denies: Weakness, Numbness, Incoordination, Change in speech, Confusion, Seizures, Other Symptoms Objective Physical Examination Neck Exam: Positive: Supple Chest Exam: Positive: Clear to auscultation, Normal air movement Heart Exam: Positive: Rate Normal, Normal S1, Normal S2 Abdomen Exam: Positive: Normal bowel sounds, Soft, Tenderness (. 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 Saenz, patient's bleeding has significantly stopped and the sigmoidoscope. He is not needed at this point as patient is H&H stable, patient can be discharged home on by mouth antibiotics for 7 more days. Once he tolerates oral feeding. He will follow-up with GI as an outpatient (2) Diverticulitis Status: Acute Problem Text: Continue IV fluids Antibiotics changed to Cipro and Flagyl Improving progressively Continue IV antibiotics (3) HTN (hypertension) Status: Chronic Problem Text: Continue home meds (4) Chronic atrial fibrillation Status: Chronic Problem Text: Continue home meds coumadin still on hold till sigmoidoscopies done Plan/VTE VTE Prophylaxis Ordered?: Yes VS, I&O, 24H, Fishbone Vital Signs/I&O Vital Signs Date Time Temp Pulse Resp B/P (MAP) Pulse Ox O2 Delivery O2 Flow Rate FiO2 06/30/19 09:01 84 142/83 06/30/19 06:00 97.8 18 97 NIPPV (BIPAP/CPAP) I&O- Last 24 Hours up to 6 AM 06/30/19 05:59 Intake Total 2130 ml Output Total 1050 ml Balance 1080 ml Laboratory Data 24H LABS Laboratory Tests 2 06/30/19 05:39: Immature Granulocyte % (Auto) 0.3, Neutrophils (%) (Auto) 71.1H, Lymphocytes (%) (Auto) 17.7L, Monocytes (%) (Auto) 8.1H, Eosinophils (%) (Auto) 2.5, Basophils (%) (Auto) 0.3, Neutrophils # (Auto) 6.2, Lymphocytes # (Auto) 1.6, Monocytes # (Auto) 0.7, Eosinophils # (Auto) 0.2, Basophils # (Auto) 0.0, Nucleated Red Blood Cells % (auto) 0.0, Prothrombin Time 25.7H, Prothromb Time International Ratio 2.37, Anion Gap 4L, Glomerular Filtration Rate > 60.0, Calcium Level 7.5L, Total Bilirubin 1.3H, Aspartate Amino Transf (AST/SGOT) 14, Alanine Aminotransferase (ALT/SGPT) 11L, Alkaline Phosphatase 64, Total Protein 4.8L, Albumin 2.3L, Albumin/Globulin Ratio 0.92L CBC/BMP Laboratory Tests 06/30/19 05:39 BALAJI LING MD Jun 30, 2019 10:32
[2019-06-30 14:00] VITALS: BP 139/68
--- NOTE | 2019-06-30 16:39 | IPNPDOC ---
Date Seen The patient was seen on 06/29/19. Progress Note Interval history: Patient reported no further rectal bleeding and his abdominal pain also improved significantly. Patient able to tolerate diet and denies any other GI symptoms. Exam: vitals; No fever, no tachycardia. Abdomen: soft, non distended, normal bowel sounds. Labs: reviewed.. Imaging tests: reviewed CT abdomen with IV contrast : Reported to mural wall thickening and diverticulos is in the left colon, suspected enterocolitis versus diverticulitis. Impression: - Acute onset rectal bleeding with left lower quadrant abdominal pain and CT scan showing mural thickening -- DDx-- Likely ischemic colitis vs Infectious colitis vs Less likely Diverticular bleeding vs Colon polyps. Recommendations: - Patient educated about the test results, possible differential diagnoses and All questions answered. - advance diet as tolerated. - Give empiric antibiotics- consider Ciprofloxacin and metronidazole if not contraindicated for 7 days. - Monitor H/H and transfuse if needed to maintain hemoglobin levels around 8 gm/dL. - Resume Coumadin and follow up with PCP for further management. - Will consider Colonoscopy electively as outpatient. - Patient to follow up in GI clinic in 3-4 weeks. Plan of care discussed with patient and primary team. Patient verbalized understanding and agreed with the plan. VS, I&O, 24H, Fishbone Vital Signs/I&O Vital Signs Date Time Temp Pulse Resp B/P (MAP) Pulse Ox O2 Delivery O2 Flow Rate FiO2 06/30/19 14:00 98.0 72 17 139/68 (91) 98 Room Air I&O- Last 24 Hours up to 6 AM 06/30/19 05:59 Intake Total 2130 ml Output Total 1050 ml Balance 1080 ml Laboratory Data 24H LABS Laboratory Tests 2 06/30/19 05:39: Immature Granulocyte % (Auto) 0.3, Neutrophils (%) (Auto) 71.1H, Lymphocytes (%) (Auto) 17.7L, Monocytes (%) (Auto) 8.1H, Eosinophils (%) (Auto) 2.5, Basophils (%) (Auto) 0.3, Neutrophils # (Auto) 6.2, Lymphocytes # (Auto) 1.6, Monocytes # (Auto) 0.7, Eosinophils # (Auto) 0.2, Basophils # (Auto) 0.0, Nucleated Red Blood Cells % (auto) 0.0, Prothrombin Time 25.7H, Prothromb Time International Ratio 2.37, Anion Gap 4L, Glomerular Filtration Rate > 60.0, Calcium Level 7.5L, Total Bilirubin 1.3H, Aspartate Amino Transf (AST/SGOT) 14, Alanine Aminotransferase (ALT/SGPT) 11L, Alkaline Phosphatase 64, Total Protein 4.8L, Albumin 2.3L, Albumin/Globulin Ratio 0.92L CBC/BMP Laboratory Tests 06/30/19 05:39 GEORGIA CONWAY MD Jun 30, 2019 16:39
[2019-06-30] MEDS: ALLOPURINOL 300 MG TAB PO SCH (19:56)
[2019-06-30] MEDS: TERAZOSIN 1 MG CAP PO SCH (19:57)
[2019-06-30 22:00] VITALS: BP 155/83
[2019-07-01 02:00] VITALS: BP 140/86
[2019-07-01] MEDS: metroNIDAZOLE 500 MG in IV 1 EA IV SCH (04:42)
[2019-07-01 06:00] VITALS: BP 148/84
[2019-07-01] MEDS ORDERED: CIPROFLOXACIN 500 MG TAB PO SCH (06:00)
[2019-07-01 06:46] LABS: BASO % 0.4 % (0.0-1.0); EOS # 0.3 10^3/uL (0.0-0.5); EOS % 3.5 % (0.0-3.0); HEMATOCRIT 39.2 % (42.0-52.0); HEMOGLOBIN 12.5 g/dl (13.5-17.5); LYMPH # 1.2 10^3/uL (1.5-5.0); LYMPH % 15.5 % (24.0-44.0); MEAN CORPUSCULAR HEMOGLOBIN 32.1 pg (27.0-33.0); MEAN CORPUSCULAR HGB CONC 31.9 g/dl (32.0-36.5); MEAN CORPUSCULAR VOLUME 100.5 fl (80.0-96.0); MONO # 0.6 10^3/uL (0.0-0.8); MONO % 8.1 % (0.0-5.0); NEUTROPHILS # 5.5 10^3/uL (1.5-8.5); NEUTROPHILS % 72.1 % (36.0-66.0); PLATELET COUNT, AUTOMATED 180 10^3/uL (150-450); WHITE BLOOD COUNT 7.6 10^3/uL (4.0-10.0)
[2019-07-01 06:56] LABS: INR 2.08; PROTHROMBIN TIME 23.2 SECONDS (11.8-14.0)
[2019-07-01 07:20] LABS: ALBUMIN 2.6 GM/DL (3.2-5.2); ALT/SGPT 11 U/L (12-78); BILIRUBIN,TOTAL 1.2 MG/DL (0.2-1.0); BLOOD UREA NITROGEN 8 MG/DL (7-18); CALCIUM LEVEL 7.6 MG/DL (8.8-10.2); CARBON DIOXIDE LEVEL 27 MEQ/L (21-32); CHLORIDE LEVEL 112 MEQ/L (98-107); CREATININE FOR GFR 0.87 MG/DL (0.70-1.30); GLOMERULAR FILTRATION RATE > 60.0 (>35); GLUCOSE, FASTING 95 MG/DL (70-100); POTASSIUM SERUM 3.4 MEQ/L (3.5-5.1); SODIUM LEVEL 142 MEQ/L (136-145); TOTAL PROTEIN 5.3 GM/DL (6.4-8.2)
[2019-07-01] MEDS ORDERED: POTASSIUM CHLORIDE 10 MEQ SR TABLET PO ONE (08:00)
[2019-07-01] MEDS: CO-ENZYME Q10 50 MG CAP PO SCH (08:11)
[2019-07-01 08:13] VITALS: BP 153/82
[2019-07-01] MEDS: DOCUSATE SODIUM 100 MG CAP PO SCH (08:14)
[2019-07-01] MEDS: NS 1,000 ML IV SCH (09:15)
[2019-07-01] MEDS ORDERED: CIPR-249 PO (10:19)
[2019-07-01] MEDS ORDERED: FLAG500T PO (10:19)
--- NOTE | 2019-07-01 12:05 | DS.PDOC ---
Discharge Summary General Date of Admission Jun 27, 2019 at 15:04 Date of Discharge 07/01/19 Discharge Summary PROCEDURES PERFORMED DURING STAY: None. ADMITTING DIAGNOSES: 1. Diverticulitis GI bleeding. DISCHARGE DIAGNOSES: 1. Radiculitis, lower GI bleed, radiation proctitis, . COMPLICATIONS/CHIEF COMPLAINT: Diverticulitis Gi Bleeding. HISTORY OF PRESENT ILLNESS: 84 years old white male with past medical history of CA prostate status post radiation proctitis, hypertension, atrial fibrillation on Coumadin, developed right lower quadrant pain along with passage of bright red blood per rectum since this morning. Patient has a history of radiation proctitis and also CT of the abdomen and pelvis was consistent with possible acute diverticulitis/enterocolitis. Patient also on anticoagulation with Coumadin, which can because of diverticular bleed as well. . HOSPITAL COURSE: Patient was admitted to PCU for close monitoring. Patient's Coumadin was stopped and because of her diverticulitis. He initially was started on Ancef IV from ED. Dr. Nii Feliz was called in and reviewed the case initially with it was planned to perform colonoscopy but patient responded very well to IV antibiotics, which was later on changed to Cipro and Flagyl. Bleeding, most likely radiation proctitis are diverticular bleed. His bleeding has subsequently subsided and his H&H is stable. Colonoscopy plan was canceled. I discussion whether Dr. Nii Feliz. He is plan to do colonoscopy as an outpatient and patient can be discharged home on by mouth Cipro and Flagyl for one week. Also Coumadin can be restarted as well as all his home meds on discharge. DISCHARGE MEDICATIONS: Please see below. ALLERGIES: Please see below. PHYSICAL EXAMINATION ON DISCHARGE: VITAL SIGNS: Please see below. GENERAL: Within normal limits HEENT: [place] extraocular muscles intact NECK: Supple, no JVD, no lymphadenopathy CARDIOVASCULAR EXAMINATION: S1, S2, regular RESPIRATORY EXAMINATION: Clear to A&P ABDOMINAL EXAMINATION: nontender, bowel sounds present. No organomegaly EXTREMITIES: No clubbing, cyanosis or edema SKIN: Within normal limits NEUROLOGICAL EXAMINATION: no Focal motor sensory deficit PSYCHIATRIC EXAMINATION: Within normal limits LABORATORY DATA: Please see below. IMAGING: CT abdomen and pelvis: IMPRESSION: Mural thickening and diverticulosis in the left colon. Enterocolitis versus diverticulitis. No abscess or free air. Intrarenal nephrolithiasis left kidney without hydronephrosis. Stable pancreatic head cystic lesion PROGNOSIS: Good ACTIVITY: As tolerated. DIET: As tolerated DISCHARGE PLAN: Follow-up with Dr. Saenz as an outpatient in one week DISPOSITION: . Home DISCHARGE INSTRUCTIONS: 1. As per discharge instructions. ITEMS TO FOLLOWUP ON ON OUTPATIENT: 1. Follow with Dr. Nii Feliz in 1 week. DISCHARGE CONDITION: Stable. TIME SPENT ON DISCHARGE: 45 minutes. Vital Signs/I&Os Vital Signs Date Time Temp Pulse Resp B/P (MAP) Pulse Ox O2 Delivery O2 Flow Rate FiO2 07/01/19 08:13 86 153/82 07/01/19 06:00 98.3 18 97 06/30/19 22:00 Room Air I&O- Last 24 Hours up to 6 AM 07/01/19 06:00 Intake Total 2200 ml Balance 2200 ml Laboratory Data Labs 24H Laboratory Tests 2 07/01/19 06:10: Immature Granulocyte % (Auto) 0.4, Neutrophils (%) (Auto) 72.1H, Lymphocytes (%) (Auto) 15.5L, Monocytes (%) (Auto) 8.1H, Eosinophils (%) (Auto) 3.5H, Basophils (%) (Auto) 0.4, Neutrophils # (Auto) 5.5, Lymphocytes # (Auto) 1.2L, Monocytes # (Auto) 0.6, Eosinophils # (Auto) 0.3, Basophils # (Auto) 0.0, Nucleated Red Blood Cells % (auto) 0.0, Prothrombin Time 23.2H, Prothromb Time International Ratio 2.08, Anion Gap 3L, Glomerular Filtration Rate > 60.0, Calcium Level 7.6L, Total Bilirubin 1.2H, Aspartate Amino Transf (AST/SGOT) 14, Alanine Aminotransferase (ALT/SGPT) 11L, Alkaline Phosphatase 73, Total Protein 5.3L, Albumin 2.6L, Albumin/Globulin Ratio 0.96L CBC/BMP Laboratory Tests 07/01/19 06:10 Discharge Medications Scheduled Allopurinol (Zyloprim) 300 Mg Tab, 300 MG PO QPM, (Reported) Ciprofloxacin HCl (Cipro) 500 Mg Tablet, 500 MG PO BID@06,18 Cyclosporine (Restasis) 0.05% Droperette, 1 DROP OU BID, (Reported) Diltiazem HCl (Cartia Xt) 240 Mg Cap, 240 MG PO DAILY, (Reported) TAKES AT NOON Furosemide (Furosemide) 20 Mg Tab, 20 MG PO DAILY, (Reported) Lisinopril/Hydrochlorothiazide (Lisinopril-Hctz 20-12.5 mg Tab) 1 Each Tablet, 1 TAB PO BID, (Reported) Metronidazole (Flagyl) 500 Mg Tablet, 500 MG PO Q8H Potassium Chloride (Potassium Chloride) 20 Meq Tab.er.prt, 20 MEQ PO DAILY, (Reported) Terazosin HCl (Terazosin HCl) 1 Mg Cap, 1 MG PO QPM, (Reported) Ubidecarenone (Co Q10) 200 Mg Capsule, 200 MG PO DAILY, (Reported) Vit A/Vit C/Vit E/Zinc/Copper (Icaps Areds Softgel) 1 Each Capsule, 1 CAP PO DAILY, (Reported) Warfarin Sodium (Warfarin Sodium) 5 Mg Tab, 5 MG PO 3XW, (Reported) QPM: MON, WED, FRI Warfarin Sodium (Warfarin Sodium) 5 Mg Tablet, 2.5 MG PO 4XWK, (Reported) QPM: SUN, TUES, TH, SAT Scheduled PRN Tramadol HCl (Tramadol HCl) 50 Mg Tab, 50 MG PO TID PRN for PAIN, (Reported) Allergies Coded Allergies: doxazosin (Verified Allergy, Unknown, 06/27/19) BALAJI LING MD Jul 01, 2019 12:05
[2019-07-01] MEDS ORDERED: metroNIDAZOLE (FLAGYL) 500 MG TAB PO SCH (14:00)
[2019-07-01] MEDS ORDERED: WARFARIN SOD 5 MG TAB PO SCH (17:00)
[2019-07-02] MEDS ORDERED: WARFARIN SOD 5 MG TAB PO SCH (17:00)
== END 2019-07-01 11:17 | disposition home or self-care (01) | DRG 378 ==
LOC: M ED 12:14 → M ED INP 15:04 → M MSPAV 19:13
PROVIDERS: ADMIT Internal Medicine; ATTEND Internal Medicine
DX: K57.33 Diverticulitis of large intestine without perforation or abscess with bleeding (principal); I48.20 Chronic atrial fibrillation, unspecified; K62.7 Radiation proctitis; I10 Essential (primary) hypertension; Z85.46 Personal history of malignant neoplasm of prostate; Z79.01 Long term (current) use of anticoagulants; Z79.899 Other long term (current) drug therapy; Z88.8 Allergy status to other drugs, medicaments and biological substances; M10.9 Gout, unspecified

== ENCOUNTER 2019-09-12 10:10 | Day surgery (SDC) | payer MEDICARE, OTHER ==
[~2019-09-12] VITALS: Ht 175.3 cm; Wt 85.6 kg
[~2019-09-12 10:10] MED LIST changes: +CIPR-249 PO; +COQ1200C3 PO; +FLAG500T PO; +ICAPCAP2 PO; +LIDOCAINE 2% INJ 100 MG/5 ML SDV (FOR ANES.) As Ordered ONE; +LISI20TA19 PO; +NS 1,000 ML IV ONE; +OMEP-221 PO; +POTA20TA6 PO; +REST0.05 OU; +propofoL 200 MG/20 ML VIAL As Ordered ONE
[2019-09-12 12:25] VITALS: BP 183/86
--- NOTE | 2019-09-12 13:01 | ROOR ---
Patient Name: Chuckie Andrade Procedure Date: 09/12/2019 11:13 AM Date of : 1935 Age: 84 Room: [facility] Gender: Male Note Status: Finalized Procedure: Colonoscopy Indications: Hematochezia, Abnormal CT of the GI tract Providers: Venkat Saenz MD Referring MD: IRASEMA DAVILA MD Requesting Provider: Medicines: Monitored Anesthesia Care Complications: No immediate complications. Procedure: Pre-Anesthesia Assessment: - Prior to the procedure, a History and Physical was performed, and patient medications and allergies were reviewed. The patient is competent. The risks and benefits of the procedure and the sedation options and risks were discussed with the patient. All questions were answered and informed consent was obtained. Patient identification and proposed procedure were verified by the physician, the nurse and the anesthesiologist in the procedure room. Mental Status Examination: alert and oriented. Airway Examination: normal oropharyngeal airway and neck mobility. Respiratory Examination: clear to auscultation. CV Examination: normal. Prophylactic Antibiotics: The patient does not require prophylactic antibiotics. Prior Anticoagulants: The patient has taken Coumadin (warfarin), last dose was 4 days prior to procedure. ASA Grade Assessment: III - A patient with severe systemic disease. After reviewing the risks and benefits, the patient was deemed in satisfactory condition to undergo the procedure. The anesthesia plan was to use monitored anesthesia care (MAC). Immediately prior to administration of medications, the patient was re-assessed for adequacy to receive sedatives. The heart rate, respiratory rate, oxygen saturations, blood pressure, adequacy of pulmonary ventilation, and response to care were monitored throughout the procedure. The physical status of the patient was re-assessed after the procedure. The Colonoscope was introduced through the anus and advanced to the terminal ileum, with identification of the appendiceal orifice and IC valve. The colonoscopy was performed without difficulty. The patient tolerated the procedure well. The quality of the bowel preparation was good. The terminal ileum, ileocecal valve, appendiceal orifice, and rectum were photographed. Scope insertion time was 3 minutes. Scope withdrawal time was 9 minutes. The total duration of the procedure was 12 minutes. Findings: The perianal and digital rectal examinations were normal. The terminal ileum appeared normal. Four sessile polyps were found in the recto-sigmoid colon, transverse colon and ascending colon. The polyps were 5 to 15 mm in size. These polyps were removed with a cold snare. Resection and retrieval were complete. For hemostasis, three hemostatic clips were successfully placed. There was no bleeding at the end of the procedure. Verification of patient identification for the specimen was done by the physician and nurse using the patient's name, date and medical record number. Estimated blood loss was minimal. Multiple small and large-mouthed diverticula were found from rectum to ascending colon. There was no evidence of diverticular bleeding. The mucosa vascular pattern in the rectum was locally increased, suggestive fo radiation proctitis. ( No active bleeding). . Non-bleeding external and internal hemorrhoids were found during retroflexion. The hemorrhoids were medium-sized. Impression: - The examined portion of the ileum was normal. - Four 5 to 15 mm polyps at the recto-sigmoid colon, in the transverse colon and in the ascending colon, removed with a cold snare. Resected and retrieved. Clips were placed. - Severe diverticulosis from rectum to ascending colon. There was no evidence of diverticular bleeding. - Increased mucosa vascular pattern in the rectum, suggestive fo radiation proctitis. ( No active bleeding). - Non-bleeding external and internal hemorrhoids. Recommendation: - Patient has a contact number available for emergencies. The signs and symptoms of potential delayed complications were discussed with the patient. Return to normal activities tomorrow. Written discharge instructions were provided to the patient. - High fiber diet. - Resume Coumadin (warfarin) at prior dose today. Refer to primary physician for further adjustment of therapy. - Use fiber, for example Citrucel, Fibercon, Konsyl or Metamucil. - Miralax 1 capful (17 grams) in 8 ounces of water PO PRN. - Await pathology results. - Repeat colonoscopy is not recommended due to current age (66 years or older) for screening purposes and depending on clinical and functional status. - Telephone GI clinic for pathology results in 2 weeks. - Return to primary care physician. Venkat Saenz MD Venkat Saenz MD 09/12/2019 1:00:48 PM Electronically signed by Venkat Saenz MD Number of Addenda: 0 Note Initiated On: 09/12/2019 11:13 AM Estimated Blood Loss: Estimated blood loss was minimal.
== END 2019-09-12 13:07 | disposition home or self-care (01) ==
LOC: M OPP 10:10
PROVIDERS: ATTEND Internal Medicine Gastroenterology
DX: K64.8 Other hemorrhoids (principal); D12.7 Benign neoplasm of rectosigmoid junction; D12.3 Benign neoplasm of transverse colon; D12.2 Benign neoplasm of ascending colon; K92.1 Melena; K57.30 Diverticulosis of large intestine without perforation or abscess without bleeding; R93.3 Abnormal findings on diagnostic imaging of other parts of digestive tract; Z79.01 Long term (current) use of anticoagulants; Z79.891 Long term (current) use of opiate analgesic; Z79.899 Other long term (current) drug therapy; Z88.8 Allergy status to other drugs, medicaments and biological substances

== ENCOUNTER → 2020-02-22 | Outpatient (CLI) | payer MEDICARE, OTHER ==
[~2020-02-22] MED LIST changes: +ACET-683 PO; +CARV12.5 PO; +DIGO0.123 PO; +DILT1TAB7 PO; +DULC5TAB PO; +GLUCCAP5 PO; -LIDOCAINE 2% INJ 100 MG/5 ML SDV (FOR ANES.) As Ordered ONE; +LISI40TA PO; +NORV5TAB PO; -NS 1,000 ML IV ONE; +PERC5TAB12 PO; +PROBCAP14 PO; +ROSU5TAB5 PO; -propofoL 200 MG/20 ML VIAL As Ordered ONE
[2020-02-22 14:51] LABS: HEMATOCRIT 43.4 % (42.0-52.0); HEMOGLOBIN 13.9 g/dl (13.5-17.5); MEAN CORPUSCULAR HEMOGLOBIN 31.2 pg (27.0-33.0); MEAN CORPUSCULAR VOLUME 97.5 fl (80.0-96.0); PLATELET COUNT, AUTOMATED 192 10^3/uL (150-450); RED BLOOD COUNT 4.45 10^6/uL (4.30-6.10); WHITE BLOOD COUNT 7.5 10^3/uL (4.0-10.0)
[2020-02-22 15:03] LABS: INR 2.98; PROTHROMBIN TIME 30.9 SECONDS (11.8-14.0)
[2020-02-22 15:15] LABS: ERYTHROCYTE SEDIMENTATION RATE 5 mm/hr (0-20)
[2020-02-22 15:20] LABS: ALBUMIN 3.5 GM/DL (3.2-5.2); ALT/SGPT 17 U/L (12-78); BILIRUBIN,TOTAL 1.1 MG/DL (0.2-1.0); BLOOD UREA NITROGEN 22 MG/DL (7-18); CALCIUM LEVEL 8.7 MG/DL (8.8-10.2); CARBON DIOXIDE LEVEL 31 MEQ/L (21-32); CHLORIDE LEVEL 105 MEQ/L (98-107); CREATININE FOR GFR 1.02 MG/DL (0.70-1.30); GLOMERULAR FILTRATION RATE > 60.0 (>35); GLUCOSE, FASTING 77 MG/DL (70-100); SODIUM LEVEL 139 MEQ/L (136-145); TOTAL PROTEIN 6.4 GM/DL (6.4-8.2)
== END ==
LOC: M LAB 13:51
PROVIDERS: ATTEND Orthopaedic Surgery
DX: M16.12 Unilateral primary osteoarthritis, left hip (principal); Z79.01 Long term (current) use of anticoagulants

== ENCOUNTER → 2020-02-23 | Outpatient (CLI) | payer MEDICARE, OTHER ==
--- NOTE | 2020-02-23 11:37 | REP ---
Clinical: Preoperative assessment . Comparison: 11/09/2018 . Technique: PA and lateral. Findings: The mediastinum and cardiac silhouette are normal. The lung lea are clear and without acute consolidation, effusion, or pneumothorax. The skeletal structures are intact and normal. Impression: 1. No acute cardiopulmonary process. Electronically Signed by Zeb Antonio MD 02/23/2020 11:28 A
== END ==
LOC: M RAD 11:13
PROVIDERS: ATTEND Orthopaedic Surgery
DX: Z01.818 Encounter for other preprocedural examination (principal); M16.12 Unilateral primary osteoarthritis, left hip

== ENCOUNTER → 2020-02-26 | Outpatient (CLI) | payer MEDICARE, OTHER ==
[~2020-02-26] MED LIST changes: -ACET-683 PO; -PERC5TAB12 PO
== END ==
LOC: M LABSMTC 10:36
PROVIDERS: ATTEND Anesthesiology
DX: Z01.818 Encounter for other preprocedural examination (principal); Z11.59 Encounter for screening for other viral diseases

== ENCOUNTER 2020-02-29 07:08 | Inpatient (IN) | payer MEDICARE, OTHER ==
--- NOTE | 2020-02-27 15:07 | HPE ---
DATE OF ADMISSION: 02/29/2020 CHIEF COMPLAINT: Left hip pain. HISTORY OF PRESENT ILLNESS: Chuckie is a pleasant 84-year-old male with progressively worsening left hip pain and stiffness. He has failed to improve with conservative treatment. He has elected for surgery for his continued symptoms. He has pain with weightbearing activities and his activities of daily living. 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 He has consented for a left total hip arthroplasty by Dr. Jan Chang. Medical optimization was performed by Dr. Alvarenga. ALLERGIES: NO KNOWN DRUG ALLERGIES. CURRENT MEDICATIONS: - warfarin 5 mg 3 days a week and 2.5 mg 4 days week - furosemide 20 mg two a day - carvedilol 12.5 mg two a day - digoxin 125 mg every other day - rosuvastatin 5 mg a day - tramadol 50 mg up to 3 day - amlodipine 5 mg a day - terazosin 1 mg a day - lisinopril 40 mg a day - allopurinol 300 mg a day - potassium 20 mEq a day - vision multi 50 - multivitamin - glucosamine and chondroitin PAST MEDICAL HISTORY: Includes atrial fibrillation (AFib), hypertension, and gout. PAST SURGICAL HISTORY: Bilateral total knee arthroplasties. SOCIAL HISTORY: This gentleman is retired. Does not smoke and drinks daily. FAMILY HISTORY: Noncontributory. REVIEW OF SYSTEMS: This patient denies chest pain, heart palpitations, cough, wheezing, difficulty breathing, and shortness of breath. He denies abdominal pain, nausea, vomiting, diarrhea, or constipation. He denies recent upper respiratory infection or urinary tract infection symptoms. He does complain of persistent pain in his left hip. PHYSICAL EXAMINATION: General: He is well-nourished, well-developed, in no acute distress, alert male patient. He ambulates with a moderate limp favoring his left lower extremity. He uses a single-leg cane. Vital Signs: He is 68 inches tall, weighs 184 pounds with a temperature of 98.6, blood pressure 122/45, pulse 52, respirations of 13. Neck was supple without adenopathy or jugular venous distension. Lungs were clear to auscultation without rales or wheeze. Heart: Irregular rate and rhythm. Abdomen: Bowel sounds were present. Extremities: Examination of the hip revealed intact skin. He had decreased range of motion with internal and external rotation due to pain and stiffness. The limb is neurovascularly intact. LABORATORY DATA: Chest x-ray showed no acute cardiopulmonary disease processes. Complete blood count (CBC) showed MCV of 97.5, RDW of 14.9, otherwise within normal limits with a sed rate of 5. ProTime 30.9, INR 2.98. Glucose 77, BUN 22, creatinine 1.02, sodium 139, potassium 4.0. The EKG is not available for review yet. IMPRESSION: Symptomatic osteoarthritis of the left hip joint. PLAN: Consented for a left total hip arthroplasty by Dr. Jan Chang.
[2020-02-29] VITALS (7 sets, daily range): BP systolic 151–167; BP diastolic 81–87
[~2020-02-29] VITALS: Ht 172.7 cm; Wt 83.8 kg
[2020-02-29] MEDS ORDERED: ACETAMINOPHEN 500 MG TAB PO ONE (08:15)
[2020-02-29] MEDS ORDERED: ceFAZolin SOD 2 GM in IV 1 EA IV ONE (08:15)
[2020-02-29 08:28] LABS: INR 1.46; PROTHROMBIN TIME 17.5 SECONDS (11.8-14.0)
[2020-02-29] MEDS ORDERED: MIDAZOLAM INJ 2MG/2ML VIAL (J2250 PER 1MG) As Ordered ONE (08:29)
[2020-02-29] MEDS ORDERED: propofoL 500 MG/50 ML VIAL As Ordered ONE (08:29)
[2020-02-29] MEDS ORDERED: LIDOCAINE 2% 100MG/5ML SDV (FOR ANES.) As Ordered ONE (08:31)
[2020-02-29] MEDS ORDERED: LR 1,000 ML IV ONE (08:45)
[2020-02-29] MEDS ORDERED: ceFAZolin 1GM VIAL (J0690 PER 500MG) As Ordered ONE (10:20)
[2020-02-29] MEDS ORDERED: propofoL 200 MG/20 ML VIAL As Ordered ONE ×2 (10:38→11:47)
[2020-02-29] MEDS ORDERED: ACETAMINOPHEN 1000MG 100ML IV BTL (OFIRMEV) (J0131 PER 10MG) As Ordered ONE (10:46)
[2020-02-29] MEDS ORDERED: ePHEDrine SULFATE 25 MG/5 ML(5MG/ML) SYRINGE As Ordered ONE (11:45)
[2020-02-29] MEDS ORDERED: PHENYLephrine HCL 500 MCG/5 ML (100MCG/ML) SYRINGE (J2370) As Ordered ONE (11:45)
[2020-02-29] MEDS: LR 1,000 ML IV SCH ×2 (12:45→22:08)
[2020-02-29] MEDS ORDERED: oxyCODONE 5MG TAB PO PRN (12:45)
[2020-02-29] MEDS ORDERED: ACETAMINOPHEN TAB 650MG DOSE (2X325MG) PO PRN (12:45)
[2020-02-29] MEDS ORDERED: fentaNYL 100 MCG/2 ML INJECTION (J3010) IV PRN (12:45)
[2020-02-29] MEDS ORDERED: METOCLOPRAMIDE INJ 10MG/2ML VIAL (J2765 PER 1) IV PRN (12:45)
[2020-02-29] MEDS ORDERED: PERCOCET 5MG/325MG TAB PO PRN ×2 (12:45)
[2020-02-29] MEDS ORDERED: LR 1,000 ML IV SCH (12:45)
[2020-02-29] MEDS ORDERED: ONDANSETRON 4MG/2ML VIAL IV PRN ×2 (12:45)
--- NOTE | 2020-02-29 15:33 | REP ---
LEFT HIP, TWO VIEWS: Two views of the left hip are performed. There is a total left hip prosthesis in good position. Osseous structures are intact and well aligned. Metallic skin felicitas are seen laterally. Metallic clips are seen throughout the prostate. Electronically Signed by Moses Anderson MD 03/01/2020 09:34 A
[2020-02-29] MEDS: MORPHINE 2 MG/ML 1ML VIAL (J2270) IV PRN ×2 (16:04→19:33)
[2020-02-29] MEDS ORDERED: WARFARIN SOD 5MG TAB PO ONE (17:00)
[2020-02-29] MEDS: ceFAZolin SOD 2 GM in IV 1 EA IV SCH (17:32)
--- NOTE | 2020-02-29 17:49 | HPEPDOC ---
[facility] Medical History & Physical Date of Admission Feb 29, 2020 Date of Service: Feb 29, 2020 Attending Physician: CINDA MILLER MD History and Physical CHIEF COMPLAINT: s/p L hip replacement HISTORY OF PRESENT ILLNESS: 84-year-old M with atrial fibrillation, hypertension, gout and osteoarthritis with progressively worsening left hip pain and stiffness for whom medicine is consulted for medical management s/p elected for surgery by Dr. Jan Chang. PAST MEDICAL HISTORY: HLD HTN Atrial fibrillation ALMAZ GERD Prostate CA PAST SURGERY HISTORY: Bilateral cataract surgery Cardiac ablation Cholecystectomy EGD Hernia repair R shoulder and L hip surgery Laminectomy, partial discectomy bilateral TKA SOCIAL HISTORY: Daily alcoholic beverage No smoking No illicit drugs ALLERGIES: NO KNOWN DRUG ALLERGIES. FAMILY HISTORY: Noncontributory. REVIEW OF SYSTEMS: 12 point ROS was reviewed and it was positive only for L hip pain at this time and otherwise negative PHYSICAL EXAMINATION: General: He is well-nourished, well-developed, in no acute distress HEENT: NCAT, PERRLA, EOMI, MMM Neck: supple, no adenopathy or JVD Lungs: CTAB, no wheezing, rales or rhonchi, breathing comfortably on room air Heart: Irregularly irregular with 2/6 RUSB holosystolic murmur Abdomen: Normoactive bowel sounds, soft, NTND Extremities: WWP, no LE edema Neuro: CN2-12 intact, moving UE with FROM. RLE with FROM. Deferred LLE hip exam s/p surgery Psych: AOx3 Labs: will check AM labs. 02/21 preop labs showed a CBC and BMP within normal limits. Assessment: 84-year-old M with atrial fibrillation, hypertension, gout and osteoarthritis with progressively worsening left hip pain and stiffness for whom medicine is consulted for medical management s/p elective L hip surgery by Dr. Jan Chang. s/p L hip surgery: - pain management and DVT ppx per surgical team - PT/OT HTN: - continue home terazosin 1 mg a day - continue home lisinopril 40 mg a day - continue home amlodipine 5 mg a day Afib: - continue home carvedilol 12.5 mg two a day - continue home digoxin 125 mg every other day? need to clarify with pharmacy - warfarin was pre-surgery, was just restarted this evening per surgical team HLD: - continue home rosuvastatin 5 mg a day CHF? chronic issue, unspecified, implied from medication reconciliation - continue home furosemide 20 mg two a day - continue home potassium 20 mEq a day Gout - continue home allopurinol 300 mg a day DVT ppx: warfarin Vital Signs Vital Signs Date Time Temp Pulse Resp B/P (MAP) Pulse Ox O2 Delivery O2 Flow Rate FiO2 02/29/20 15:46 16 02/29/20 14:07 98.2 54 151/81 (104) 96 02/29/20 13:40 Room Air 02/29/20 12:30 10 Laboratory Data Labs 24H Laboratory Tests 2 02/29/20 07:38: Prothrombin Time 17.5H, Prothromb Time International Ratio 1.46 Home Medications Scheduled Allopurinol (Zyloprim) 300 Mg Tab, 300 MG PO QPM Amlodipine Besylate (Norvasc) 5 Mg Tablet, 5 MG PO DAILY Carvedilol (Carvedilol) 12.5 Mg Tablet, 12.5 MG PO BID Digoxin (Digoxin) 125 Mcg Tablet, 125 MCG PO Q2D Furosemide (Furosemide) 20 Mg Tab, 20 MG PO BID Glucosam/Apolinar-Col.cplx/D3/C/Mn (Ttcoxpgyruy-Ocekfvtnmmk-G9 Cap) 1 Each Capsule, 1 CAP PO DAILY Lisinopril (Lisinopril) 40 Mg Tablet, 40 MG PO DAILY Potassium Chloride (Potassium Chloride) 20 Meq Tab.er.prt, 20 MEQ PO DAILY Rosuvastatin Calcium (Rosuvastatin Calcium) 5 Mg Tablet, 5 MG PO DAILY Terazosin HCl (Terazosin HCl) 1 Mg Cap, 1 MG PO QPM Vit A/Vit C/Vit E/Zinc/Copper (Icaps Areds Softgel) 1 Each Capsule, 1 CAP PO DAILY Warfarin Sodium (Warfarin Sodium) 5 Mg Tab, 5 MG PO 3XW QPM: MON, WED, FRI Warfarin Sodium (Warfarin Sodium) 5 Mg Tablet, 2.5 MG PO 4XWK QPM: SUN, TUES, THURS, SAT Scheduled PRN Tramadol HCl (Tramadol HCl) 50 Mg Tab, 50 MG PO TID PRN for PAIN Allergies Coded Allergies: chlorpheniramine (Verified Adverse Reaction, Severe, cardiac symptoms and hypertension, 09/07/19) phenylephrine (Verified Adverse Reaction, Severe, cardiac symptoms and hypertension, 09/07/19) A-FIB/CHADSVASC A-FIB History Current/History of A-Fib/PAF?: Yes Current PO Anticoag Therapy: Yes CINDA MILLER MD Feb 29, 2020 16:46
[2020-02-29] MEDS ORDERED: traMADol 50 MG TAB PO PRN (20:00)
[2020-02-29] MEDS: allopurinoL 300 MG TAB PO SCH (20:27)
[2020-02-29] MEDS: TERAZOSIN 1 MG CAP PO SCH (20:28)
[2020-02-29] MEDS: CARVedilol 12.5 MG TAB PO SCH (20:28)
[2020-02-29] MEDS: ACETAMINOPHEN 500 MG TAB PO SCH (20:29)
[2020-02-29] MEDS: traMADol 50 MG TAB PO PRN (20:36)
[2020-03-01] MEDS: ceFAZolin SOD 2 GM in IV 1 EA IV SCH ×2 (01:27→08:51)
[2020-03-01 02:00] VITALS: BP 138/64
[2020-03-01] MEDS: ACETAMINOPHEN 500 MG TAB PO SCH ×3 (05:27→21:10)
[2020-03-01] MEDS: traMADol 50 MG TAB PO PRN ×3 (05:55→20:11)
[2020-03-01 06:00] VITALS: BP 142/68
[2020-03-01 06:57] LABS: HEMATOCRIT 39.9 % (42.0-52.0); HEMOGLOBIN 13.1 g/dl (13.5-17.5); MEAN CORPUSCULAR HEMOGLOBIN 31.6 pg (27.0-33.0); MEAN CORPUSCULAR HGB CONC 32.8 g/dl (32.0-36.5); MEAN CORPUSCULAR VOLUME 96.1 fl (80.0-96.0); PLATELET COUNT, AUTOMATED 164 10^3/uL (150-450); RED BLOOD COUNT 4.15 10^6/uL (4.30-6.10)
[2020-03-01 07:08] LABS: INR 1.5; PROTHROMBIN TIME 17.8 SECONDS (11.8-14.0)
[2020-03-01 07:30] LABS: ALBUMIN 2.8 GM/DL (3.2-5.2); ALT/SGPT 13 U/L (12-78); BILIRUBIN,TOTAL 1.8 MG/DL (0.2-1.0); BLOOD UREA NITROGEN 15 MG/DL (7-18); CALCIUM LEVEL 8.4 MG/DL (8.8-10.2); CARBON DIOXIDE LEVEL 28 MEQ/L (21-32); CHLORIDE LEVEL 103 MEQ/L (98-107); GLOMERULAR FILTRATION RATE > 60.0 (>35); GLUCOSE, FASTING 107 MG/DL (70-100); POTASSIUM SERUM 3.7 MEQ/L (3.5-5.1); SODIUM LEVEL 139 MEQ/L (136-145); TOTAL PROTEIN 5.2 GM/DL (6.4-8.2)
[2020-03-01] MEDS: POTASSIUM CHLORIDE 10 MEQ SR TABLET PO SCH (08:49)
[2020-03-01] MEDS: CARVedilol 12.5 MG TAB PO SCH ×2 (08:49→20:10)
[2020-03-01] MEDS: ROSUVASTATIN 10 MG TAB (CRESTOR) PO SCH (08:49)
[2020-03-01] MEDS: amLODIPine 5 MG TAB PO SCH (08:50)
[2020-03-01] MEDS: lisinopriL 40 MG TAB PO SCH (08:50)
[2020-03-01] MEDS: MOM 30ML SUSPENSION UDC PO SCH (08:50)
[2020-03-01] MEDS: MIRALAX *UNIT DOSE* 17GM PACKET PO SCH (08:50)
[2020-03-01 10:00] VITALS: BP 121/60
--- NOTE | 2020-03-01 13:43 | IPNPDOC ---
Text Note Date of Service The patient was seen on 03/01/20. NOTE Subjective: Pain is now much better controlled Objective: General: He is well-nourished, well-developed, in no acute distress HEENT: NCAT, PERRLA, EOMI, MMM Neck: supple, no adenopathy or JVD Lungs: CTAB, no wheezing, rales or rhonchi, breathing comfortably on room air Heart: Irregularly irregular with 2/6 RUSB holosystolic murmur Abdomen: Normoactive bowel sounds, soft, NTND Extremities: WWP, trace LE edema Neuro: CN2-12 intact, moving UE with FROM. RLE with FROM. Deferred LLE exam. Psych: AOx3 Labs: WBC 11.1 Hgb 13.1 Platelets 164 na 139 K 3.7 Cr 0.9 Assessment: 84-year-old M with atrial fibrillation, hypertension, gout and osteoarthritis with progressively worsening left hip pain and stiffness for whom medicine is consulted for medical management s/p elective L hip surgery by Dr. Jan Chang. s/p L hip surgery: - pain management per surgical team - PT/OT - was restarted on warfarin by surgical team yesterday evening HTN: - continue home terazosin 1 mg a day - continue home lisinopril 40 mg a day - continue home amlodipine 5 mg a day Afib: - continue home carvedilol 12.5 mg two a day - continue home digoxin 125 mg every other day? need to clarify with pharmacy - warfarin was pre-surgery, was just restarted this evening per surgical team HLD: - continue home rosuvastatin 5 mg a day CHF? chronic issue, unspecified, implied from medication reconciliation - continue home furosemide 20 mg two a day - continue home potassium 20 mEq a day Gout - continue home allopurinol 300 mg a day DVT ppx: warfarin VS,Fishbone, I+O VS, Fishbone, I+O Laboratory Tests 03/01/20 06:39 Vital Signs Date Time Temp Pulse Resp B/P (MAP) Pulse Ox O2 Delivery O2 Flow Rate FiO2 03/01/20 06:25 17 03/01/20 06:00 97.6 68 142/68 (92) 98 Room Air 02/29/20 12:30 10 I&O- Last 24 Hours up to 6 AM 03/01/20 06:00 Intake Total 3255 ml Output Total 2275 ml Balance 980 ml CINDA MILLER MD Mar 01, 2020 08:08
[2020-03-01 14:00] VITALS: BP 112/53
[2020-03-01] MEDS ORDERED: WARFARIN SOD 5MG TAB PO SCH (17:00)
[2020-03-01] MEDS: allopurinoL 300 MG TAB PO SCH (20:10)
[2020-03-01] MEDS: TERAZOSIN 1 MG CAP PO SCH (20:11)
[2020-03-01 22:00] VITALS: BP 125/59
[2020-03-02 05:44] VITALS: BP 138/69
[2020-03-02] MEDS: ACETAMINOPHEN 500 MG TAB PO SCH ×3 (05:44→21:04)
[2020-03-02 08:28] LABS: HEMATOCRIT 37.4 % (42.0-52.0); HEMOGLOBIN 12.3 g/dl (13.5-17.5); MEAN CORPUSCULAR HEMOGLOBIN 31.6 pg (27.0-33.0); MEAN CORPUSCULAR HGB CONC 32.9 g/dl (32.0-36.5); MEAN CORPUSCULAR VOLUME 96.1 fl (80.0-96.0); PLATELET COUNT, AUTOMATED 163 10^3/uL (150-450); RED BLOOD COUNT 3.89 10^6/uL (4.30-6.10); WHITE BLOOD COUNT 10.7 10^3/uL (4.0-10.0)
[2020-03-02 08:39] LABS: INR 1.95
[2020-03-02 08:59] LABS: ALBUMIN 2.5 GM/DL (3.2-5.2); BILIRUBIN,TOTAL 0.9 MG/DL (0.2-1.0); CALCIUM LEVEL 8.3 MG/DL (8.8-10.2); CREATININE FOR GFR 1.46 MG/DL (0.70-1.30); GLOMERULAR FILTRATION RATE 48.7 (>35); POTASSIUM SERUM 3.8 MEQ/L (3.5-5.1); TOTAL PROTEIN 5.2 GM/DL (6.4-8.2)
[2020-03-02] MEDS: ROSUVASTATIN 10 MG TAB (CRESTOR) PO SCH (09:00)
[2020-03-02] MEDS: MIRALAX *UNIT DOSE* 17GM PACKET PO SCH (09:24)
[2020-03-02] MEDS: MOM 30ML SUSPENSION UDC PO SCH (09:24)
[2020-03-02] MEDS: lisinopriL 40 MG TAB PO SCH (09:25)
[2020-03-02] MEDS: POTASSIUM CHLORIDE 10 MEQ SR TABLET PO SCH (09:26)
[2020-03-02] MEDS: CARVedilol 12.5 MG TAB PO SCH ×2 (09:26→21:02)
[2020-03-02] MEDS: amLODIPine 5 MG TAB PO SCH (09:27)
[2020-03-02] MEDS ORDERED: TRAM50TA2 PO (10:41)
[2020-03-02] MEDS ORDERED: ACET-683 PO (10:41)
--- NOTE | 2020-03-02 12:46 | IPNPDOC ---
Text Note Date of Service The patient was seen on 03/02/20. NOTE Subjective: -Doing well was cleared by PT and surgery for discharge home Objective: General: Well-nourished, well-developed, in no acute distress HEENT: NCAT, PERRLA, EOMI, MMM Neck: supple, no adenopathy or JVD Lungs: CTAB, no wheezing, rales or rhonchi, breathing comfortably on room air Heart: Irregularly irregular with 2/6 RUSB holosystolic murmur Abdomen: Normoactive bowel sounds, soft, NTND Extremities: WWP, trace LE edema Neuro: CN2-12 intact, moving UE with FROM. RLE with FROM. Deferred LLE exam. Psych: AOx3 Labs: Reviewed, Cr now 1.46 Assessment: 84-year-old M with atrial fibrillation, hypertension, gout and osteoarthritis with progressively worsening left hip pain and stiffness for whom medicine is consulted for medical management s/p elective L hip surgery by Dr. Jan Chang with course c/b new ISAURO pre-discharge. Will restart home diuretics, check urine lytes and monitor renal function before discharge home. ISAURO: new -Reports low UOP today, has not been on his lasix post op, will restart lasix 20 BID -PVR for retention r/o -UA -Anh and UCr for FeNa -will consider renal US -will hold lisinopril for now s/p L hip surgery: - pain management per surgical team - PT/OT - was restarted on warfarin by surgical team yesterday evening HTN: - continue home terazosin 1 mg a day - hold lisinopril 40 mg a day in the setting of an ISAURO - continue home amlodipine 5 mg a day Afib: - continue home carvedilol 12.5 mg two a day - continue home digoxin 125 mg every other day - warfarin was pre-surgery, was just restarted this evening per surgical team HLD: - continue home rosuvastatin 5 mg a day CHF? chronic issue, unspecified, implied from medication reconciliation - restart home furosemide 20 mg two a day - continue home potassium 20 mEq a day - check proBNP Gout - continue home allopurinol 300 mg a day DVT ppx: warfarin VS,Fishbone, I+O VS, Fishbone, I+O Laboratory Tests 03/02/20 08:02 Vital Signs Date Time Temp Pulse Resp B/P (MAP) Pulse Ox O2 Delivery O2 Flow Rate FiO2 03/02/20 09:27 76 138/69 03/02/20 05:44 98.7 16 98 Room Air 02/29/20 12:30 10 I&O- Last 24 Hours up to 6 AM 03/02/20 06:00 Intake Total 1080 ml Output Total 0 ml Balance 1080 ml CINDA MILLER MD Mar 02, 2020 12:46
[2020-03-02] MEDS: FUROSEMIDE 40 MG TAB PO SCH ×2 (13:48→21:03)
[2020-03-02 13:53] LABS: APPEARANCE, URINE CLEAR (CLEAR); BACTERIA, URINE AUTO NEGATIVE (NEGATIVE); BILIRUBIN, URINE AUTO NEGATIVE (NEGATIVE); BLOOD, URINE BLOOD NEGATIVE (NEGATIVE); COLOR, URINE YELLOW (YELLOW); GLUCOSE, URINE (UA) AUTO NEGATIVE (NEGATIVE); KETONE, URINE AUTO NEGATIVE (NEGATIVE); LEUKOCYTE ESTERASE, URINE AUTO NEGATIVE (NEGATIVE); MUCUS, URINE SMALL (NEGATIVE); NITRITE, URINE AUTO NEGATIVE (NEGATIVE); PROTEIN, URINE AUTO NEGATIVE (NEGATIVE); RBC, URINE AUTO 2 /HPF (0-3); SPECIFIC GRAVITY URINE AUTO 1.019 (1.002-1.035); SQUAMOUS EPITHELIAL CELL UR AU 0 /HPF (0-6); WBC, URINE AUTO 6 /HPF (0-3)
[2020-03-02 14:00] VITALS: BP 122/72
[2020-03-02 14:20] LABS: SODIUM,RANDOM URINE < 10 MEQ/L
[2020-03-02] MEDS ORDERED: WARFARIN SOD 5MG TAB PO SCH (17:00)
[2020-03-02 20:42] VITALS: BP 114/57
[2020-03-02 21:02] VITALS: BP 114/57
[2020-03-02] MEDS: TERAZOSIN 1 MG CAP PO SCH (21:02)
[2020-03-02] MEDS: allopurinoL 300 MG TAB PO SCH (21:02)
[2020-03-03] MEDS ORDERED: PERC5TAB12 PO (05:41)
[2020-03-03] MEDS ORDERED: PERCOCET 5MG/325MG TAB PO PRN (05:45)
[2020-03-03] MEDS: PERCOCET 5MG/325MG TAB PO PRN ×2 (05:50→11:36)
[2020-03-03 05:53] VITALS: BP 121/77
[2020-03-03 07:25] LABS: HEMATOCRIT 35.2 % (42.0-52.0); HEMOGLOBIN 11.5 g/dl (13.5-17.5); MEAN CORPUSCULAR HEMOGLOBIN 31.3 pg (27.0-33.0); MEAN CORPUSCULAR HGB CONC 32.7 g/dl (32.0-36.5); MEAN CORPUSCULAR VOLUME 95.7 fl (80.0-96.0); PLATELET COUNT, AUTOMATED 164 10^3/uL (150-450); RED BLOOD COUNT 3.68 10^6/uL (4.30-6.10); WHITE BLOOD COUNT 8.4 10^3/uL (4.0-10.0)
[2020-03-03 07:45] LABS: INR 2.12; PROTHROMBIN TIME 23.5 SECONDS (11.8-14.0)
[2020-03-03 08:03] LABS: ALBUMIN 2.5 GM/DL (3.2-5.2); ALT/SGPT 7 U/L (12-78); BILIRUBIN,TOTAL 0.7 MG/DL (0.2-1.0); BLOOD UREA NITROGEN 27 MG/DL (7-18); CALCIUM LEVEL 8.3 MG/DL (8.8-10.2); CARBON DIOXIDE LEVEL 30 MEQ/L (21-32); CHLORIDE LEVEL 104 MEQ/L (98-107); CREATININE FOR GFR 0.99 MG/DL (0.70-1.30); GLOMERULAR FILTRATION RATE > 60.0 (>35); GLUCOSE, FASTING 96 MG/DL (70-100); POTASSIUM SERUM 4.2 MEQ/L (3.5-5.1); SODIUM LEVEL 139 MEQ/L (136-145)
[2020-03-03] MEDS: MOM 30ML SUSPENSION UDC PO SCH (09:00)
[2020-03-03] MEDS: MIRALAX *UNIT DOSE* 17GM PACKET PO SCH (09:00)
[2020-03-03] MEDS: FUROSEMIDE 40 MG TAB PO SCH (09:29)
[2020-03-03] MEDS: ROSUVASTATIN 10 MG TAB (CRESTOR) PO SCH (09:29)
[2020-03-03] MEDS: POTASSIUM CHLORIDE 10 MEQ SR TABLET PO SCH (09:29)
[2020-03-03] MEDS: lisinopriL 40 MG TAB PO SCH (09:29)
[2020-03-03] MEDS: CARVedilol 12.5 MG TAB PO SCH (09:30)
[2020-03-03] MEDS: amLODIPine 5 MG TAB PO SCH (09:31)
--- NOTE | 2020-03-03 11:22 | DS.PDOC ---
Discharge Summary General Date of Admission Feb 29, 2020 at 07:08 Date of Discharge 03/03/2020 Attending Physician: CINDA MILLER MD Discharge Summary PROCEDURES PERFORMED DURING STAY: L total hip arthroplasty ADMITTING DIAGNOSES: 1. Left Hip Osteoarthritis DISCHARGE DIAGNOSES: Left Hip Osteoarthritis s/p L total hip arthroplasty HLD HTN Atrial fibrillation ALMAZ GERD Prostate CA COMPLICATIONS/CHIEF COMPLAINT: Left Hip Osteoarthritis. HISTORY OF PRESENT ILLNESS: 84-year-old M with atrial fibrillation, hypertension, gout and osteoarthritis with progressively worsening left hip pain and stiffness for whom medicine is consulted for medical management s/p elected for surgery by Dr. Jan Chang. HOSPITAL COURSE: Ms. Andrade did well postop and was scheduled to be discharged home on 03/02 but was noted to have acute kidney injury on labs with reported poor urine output in the setting of holding his diuretics perisurgery. I restarted them and watched him for one more day with improvement, and am now discharging him home with orthopedics and PCP follow up. DISCHARGE MEDICATIONS: Please see below. ALLERGIES: Please see below. PHYSICAL EXAMINATION ON DISCHARGE: VITAL SIGNS: Please see below. General: Well-nourished, well-developed, in no acute distress HEENT: NCAT, PERRLA, EOMI, MMM Neck: supple, no adenopathy or JVD Lungs: CTAB, no wheezing, rales or rhonchi, breathing comfortably on room air Heart: Irregularly irregular with 2/6 RUSB holosystolic murmur Abdomen: Normoactive bowel sounds, soft, NTND Extremities: WWP, trace LE edema Neuro: CN2-12 intact, moving UE with FROM. RLE with FROM. Deferred LLE exam. Psych: AOx3 LABORATORY DATA: Please see below. IMAGING: None PROGNOSIS: Good ACTIVITY: As tolerated DIET: 2g sodium DISCHARGE PLAN: Home with close PCP and orthopedics follow up DISPOSITION: Home DISCHARGE INSTRUCTIONS: 1. Home with close PCP and orthopedics follow up ITEMS TO FOLLOWUP ON ON OUTPATIENT: 1. Hip surgery with ortho 2. ISAURO resolution with PCP DISCHARGE CONDITION: Stable TIME SPENT ON DISCHARGE: Greater than minutes. Vital Signs/I&Os Vital Signs Date Time Temp Pulse Resp B/P (MAP) Pulse Ox O2 Delivery O2 Flow Rate FiO2 03/03/20 06:20 18 03/03/20 05:53 97.7 77 121/77 (92) 98 NIPPV (BIPAP/CPAP) 02/29/20 12:30 10 I&O- Last 24 Hours up to 6 AM 03/03/20 06:00 Intake Total 980 ml Output Total 1400 ml Balance -420 ml Laboratory Data Labs 24H Laboratory Tests 2 03/02/20 08:02: Nucleated Red Blood Cells % (auto) 0.0, Prothrombin Time 22.0H, Prothromb Time International Ratio 1.95, Anion Gap 5L, Glomerular Filtration Rate 48.7, Calcium Level 8.3L, Total Bilirubin 0.9, Aspartate Amino Transf (AST/SGOT) 15, Alanine Aminotransferase (ALT/SGPT) 7L, Alkaline Phosphatase 70, UI-Mab-C-Type Natriuretic Peptide 2448H, Total Protein 5.2L, Albumin 2.5L, Albumin/Globulin Ratio 0.9 03/02/20 13:33: Urine Color YELLOW, Urine Appearance CLEAR, Urine pH 5.0, Urine Specific [place] 1.019, Urine Protein NEGATIVE, Urine Glucose (Auto)(UA) NEGATIVE, Urine Ketones (Auto) NEGATIVE, Urine Blood NEGATIVE, Urine Nitrite NEGATIVE, Urine Bilirubin NEGATIVE, Urine Urobilinogen 2.0H, Urine Leukocyte Esterase (Auto) NEGATIVE, Urine WBC (Auto) 6H, Urine RBC (Auto) 2, Urine Hyaline Casts (Auto) 1, Urine Bacteria (Auto) NEGATIVE, Urine Squamous Epithelial Cells 0, Urine Mucus (Auto) SMALL, Urine Sperm (Auto) , Urine Random Creatinine 174.0, Urine Random Sodium < 10 03/03/20 07:01: Nucleated Red Blood Cells % (auto) 0.0 CBC/BMP Laboratory Tests 03/02/20 08:02 03/03/20 07:01 Discharge Medications Scheduled Allopurinol (Zyloprim) 300 Mg Tab, 300 MG PO QPM, (Reported) Amlodipine Besylate (Norvasc) 5 Mg Tablet, 5 MG PO DAILY, (Reported) Carvedilol (Carvedilol) 12.5 Mg Tablet, 12.5 MG PO BID, (Reported) Digoxin (Digoxin) 125 Mcg Tablet, 125 MCG PO Q2D, (Reported) Furosemide (Furosemide) 20 Mg Tab, 20 MG PO BID, (Reported) Glucosam/Apolinar-Col.cplx/D3/C/Mn (Egykgdguodv-Nxfoxsatluk-K0 Cap) 1 Each Capsule, 1 CAP PO DAILY, (Reported) Lisinopril (Lisinopril) 40 Mg Tablet, 40 MG PO DAILY, (Reported) Potassium Chloride (Potassium Chloride) 20 Meq Tab.er.prt, 20 MEQ PO DAILY, (Reported) Rosuvastatin Calcium (Rosuvastatin Calcium) 5 Mg Tablet, 5 MG PO DAILY, (Reported) Terazosin HCl (Terazosin HCl) 1 Mg Cap, 1 MG PO QPM, (Reported) Vit A/Vit C/Vit E/Zinc/Copper (Icaps Areds Softgel) 1 Each Capsule, 1 CAP PO DAILY, (Reported) Warfarin Sodium (Warfarin Sodium) 5 Mg Tab, 5 MG PO 3XW, (Reported) QPM: MON, WED, FRI Warfarin Sodium (Warfarin Sodium) 5 Mg Tablet, 2.5 MG PO 4XWK, (Reported) QPM: SUN, TUES, THURS, SAT Scheduled PRN Oxycodone HCl/Acetaminophen (Percocet 5-325 mg Tablet) 1 Each Tablet, 1 TAB PO Q4H PRN for PAIN Tramadol HCl (Tramadol HCl) 50 Mg Tab, 50 MG PO TID PRN for PAIN, (Reported) Allergies Coded Allergies: chlorpheniramine (Verified Adverse Reaction, Severe, cardiac symptoms and hypertension, 09/07/19) phenylephrine (Verified Adverse Reaction, Severe, cardiac symptoms and hypertension, 09/07/19) CINDA MILLER MD Mar 03, 2020 07:48
== END 2020-03-03 12:00 | disposition home or self-care (01) | DRG 470 ==
LOC: M OR 07:08 → M MS5PR 14:00
PROVIDERS: ADMIT Orthopaedic Surgery; ATTEND Orthopaedic Surgery
PROC: 0SRB0JA Replacement of Left Hip Joint with Synthetic Substitute, Uncemented, Open Approach (ICD-10-PCS; principal; 2020-02-29 10:00)
DX: M16.12 Unilateral primary osteoarthritis, left hip (principal); N17.9 Acute kidney failure, unspecified; Z11.59 Encounter for screening for other viral diseases; I48.91 Unspecified atrial fibrillation; I10 Essential (primary) hypertension; Z79.899 Other long term (current) drug therapy; M10.9 Gout, unspecified; G47.33 Obstructive sleep apnea (adult) (pediatric); K21.9 Gastro-esophageal reflux disease without esophagitis; Z96.651 Presence of right artificial knee joint; Z96.652 Presence of left artificial knee joint; Z88.8 Allergy status to other drugs, medicaments and biological substances; Z85.46 Personal history of malignant neoplasm of prostate

== ENCOUNTER → 2020-03-07 | Outpatient (CLI) | payer MEDICARE, OTHER ==
[~2020-03-07] MED LIST changes: +ACET-683 PO; -LISI20TA19 PO; +LISI20TA35 PO; +PERC5TAB12 PO
--- NOTE | 2020-03-07 16:36 | REP ---
Left lower extremity Duplex Doppler venous ultrasound: Real time compression and duplex Doppler interrogation of the left lower extremity deep venous system is performed. The left common femoral, superficial femoral and popliteal veins are fully compressible with transducer pressure and demonstrate normal spontaneous and phasic flow, without evidence of deep venous thrombosis. Impression: No evidence of deep venous thrombosis of the left lower extremity femoral popliteal venous system. Electronically Signed by Moses Anderson MD 03/07/2020 04:27 P
== END ==
LOC: M RAD 14:46
PROVIDERS: ATTEND Internal Medicine Cardiovascular Disease
DX: R60.0 Localized edema (principal); M79.652 Pain in left thigh

== ENCOUNTER → 2020-12-31 | Outpatient (CLI) | payer MEDICARE, OTHER ==
[~2020-12-31] MED LIST changes: -LISI40TA PO; +LISI40TA4 PO
[2020-12-31 13:36] LABS: BASO % 0.4 % (0.0-1.0); EOS # 0.3 10^3/uL (0.0-0.5); EOS % 3.7 % (0.0-3.0); HEMATOCRIT 38.5 % (42.0-52.0); HEMOGLOBIN 12.3 g/dl (13.5-17.5); LYMPH # 1.9 10^3/uL (1.5-5.0); LYMPH % 26.8 % (24.0-44.0); MEAN CORPUSCULAR HEMOGLOBIN 33.1 pg (27.0-33.0); MEAN CORPUSCULAR HGB CONC 31.9 g/dl (32.0-36.5); MEAN CORPUSCULAR VOLUME 103.5 fl (80.0-96.0); MONO # 0.6 10^3/uL (0.0-0.8); MONO % 8.3 % (2.0-8.0); NEUTROPHILS # 4.3 10^3/uL (1.5-8.5); NEUTROPHILS % 60.2 % (36.0-66.0); PLATELET COUNT, AUTOMATED 199 10^3/uL (150-450); RED BLOOD COUNT 3.72 10^6/uL (4.30-6.10); WHITE BLOOD COUNT 7.1 10^3/uL (4.0-10.0)
[2020-12-31 13:57] LABS: CALCIUM LEVEL 9.4 MG/DL (8.8-10.2); CREATININE FOR GFR 2.14 MG/DL (0.70-1.30); GLOMERULAR FILTRATION RATE 31.3 (>35); POTASSIUM SERUM 5.6 MEQ/L (3.5-5.1)
== END ==
LOC: M WUC 11:09
PROVIDERS: ATTEND Internal Medicine Cardiovascular Disease
DX: I48.20 Chronic atrial fibrillation, unspecified (principal); I50.32 Chronic diastolic (congestive) heart failure

== ENCOUNTER → 2020-12-31 | Outpatient (CLI) | payer MEDICARE, OTHER | LOC: M LABSMTC 10:31 | PROVIDERS: ATTEND Internal Medicine Cardiovascular Disease | DX: Z11.52 Encounter for screening for COVID-19 (principal) ==

== ENCOUNTER → 2021-01-15 | Outpatient (CLI) | payer MEDICARE, OTHER ==
[2021-01-15 19:51] LABS: BASO % 0.3 % (0.0-1.0); EOS # 0.3 10^3/uL (0.0-0.5); EOS % 3.7 % (0.0-3.0); HEMATOCRIT 33.9 % (42.0-52.0); HEMOGLOBIN 10.9 g/dl (13.5-17.5); LYMPH # 2.2 10^3/uL (1.5-5.0); LYMPH % 29.2 % (24.0-44.0); MEAN CORPUSCULAR HEMOGLOBIN 33.5 pg (27.0-33.0); MEAN CORPUSCULAR HGB CONC 32.2 g/dl (32.0-36.5); MEAN CORPUSCULAR VOLUME 104.3 fl (80.0-96.0); MONO # 0.7 10^3/uL (0.0-0.8); NEUTROPHILS # 4.4 10^3/uL (1.5-8.5); NEUTROPHILS % 57.4 % (36.0-66.0); PLATELET COUNT, AUTOMATED 198 10^3/uL (150-450); RED BLOOD COUNT 3.25 10^6/uL (4.30-6.10); WHITE BLOOD COUNT 7.7 10^3/uL (4.0-10.0)
[2021-01-15 20:02] LABS: INR 1.9; PROTHROMBIN TIME 22.2 SECONDS (12.5-14.3)
[2021-01-15 20:15] LABS: CALCIUM LEVEL 8.8 MG/DL (8.8-10.2); CHOLESTEROL RISK RATIO 1.672 (<5); CREATININE FOR GFR 1.71 MG/DL (0.70-1.30); GLOMERULAR FILTRATION RATE 40.5 (>35); POTASSIUM SERUM 4.8 MEQ/L (3.5-5.1)
== END ==
LOC: M WUC 15:44
PROVIDERS: ATTEND Nurse Practitioner
DX: I48.21 Permanent atrial fibrillation (principal); I10 Essential (primary) hypertension; E78.5 Hyperlipidemia, unspecified

== ENCOUNTER → 2021-01-23 | Outpatient (CLI) | payer MEDICARE, OTHER ==
[2021-01-23 13:05] LABS: BASO % 0.4 % (0.0-1.0); EOS # 0.2 10^3/uL (0.0-0.5); EOS % 2.3 % (0.0-3.0); HEMATOCRIT 36.5 % (42.0-52.0); HEMOGLOBIN 11.4 g/dl (13.5-17.5); LYMPH # 1.7 10^3/uL (1.5-5.0); LYMPH % 25.1 % (24.0-44.0); MEAN CORPUSCULAR HEMOGLOBIN 32.9 pg (27.0-33.0); MEAN CORPUSCULAR HGB CONC 31.2 g/dl (32.0-36.5); MEAN CORPUSCULAR VOLUME 105.5 fl (80.0-96.0); MONO # 0.6 10^3/uL (0.0-0.8); MONO % 8.8 % (2.0-8.0); NEUTROPHILS # 4.3 10^3/uL (1.5-8.5); NEUTROPHILS % 62.8 % (36.0-66.0); PLATELET COUNT, AUTOMATED 195 10^3/uL (150-450); RED BLOOD COUNT 3.46 10^6/uL (4.30-6.10); WHITE BLOOD COUNT 6.9 10^3/uL (4.0-10.0)
[2021-01-23 13:33] LABS: CALCIUM LEVEL 8.8 MG/DL (8.8-10.2); CREATININE FOR GFR 1.35 MG/DL (0.70-1.30); GLOMERULAR FILTRATION RATE 53.2 (>35); PERCENT SATURATION 16.8 % (19.7-50.0); POTASSIUM SERUM 4.5 MEQ/L (3.5-5.1)
[2021-01-23 13:41] LABS: FOLATE 9.7 NG/ML (>5.4)
== END ==
LOC: M WUC 11:39
DX: I50.32 Chronic diastolic (congestive) heart failure (principal); N18.2 Chronic kidney disease, stage 2 (mild); D64.9 Anemia, unspecified

== ENCOUNTER → 2021-04-01 | Outpatient (CLI) | payer MEDICARE, OTHER ==
[~2021-04-01] MED LIST changes: -OMEP-221 PO; +OMEP40CA5 PO; +POTA-151 PO; -POTA20TA6 PO
[2021-04-01 15:55] LABS: CALCIUM LEVEL 9.2 MG/DL (8.8-10.2); CREATININE FOR GFR 1.24 MG/DL (0.70-1.30); GLOMERULAR FILTRATION RATE 58.7 (>35); POTASSIUM SERUM 3.9 MEQ/L (3.5-5.1)
== END ==
LOC: M WUC 11:53
PROVIDERS: ATTEND Internal Medicine Cardiovascular Disease
DX: I10 Essential (primary) hypertension (principal); E78.00 Pure hypercholesterolemia, unspecified; Z79.01 Long term (current) use of anticoagulants

== ENCOUNTER → 2021-05-14 | Outpatient (CLI) | payer MEDICARE, OTHER ==
[~2021-05-14] MED LIST changes: +OMEP-221 PO; -OMEP40CA5 PO; -POTA-151 PO; +POTA20TA6 PO
[2021-05-14 20:22] LABS: BLOOD UREA NITROGEN 26 MG/DL (7-18); CALCIUM LEVEL 8.9 MG/DL (8.8-10.2); CARBON DIOXIDE LEVEL 28 MEQ/L (21-32); CHLORIDE LEVEL 106 MEQ/L (98-107); CREATININE FOR GFR 1.19 MG/DL (0.70-1.30); GLOMERULAR FILTRATION RATE > 60.0 (>35); GLUCOSE, FASTING 82 MG/DL (70-100); POTASSIUM SERUM 3.8 MEQ/L (3.5-5.1); SODIUM LEVEL 142 MEQ/L (136-145)
== END ==
LOC: M WUC 15:18
PROVIDERS: ATTEND Internal Medicine Cardiovascular Disease
DX: N18.2 Chronic kidney disease, stage 2 (mild) (principal); C44.329 Squamous cell carcinoma of skin of other parts of face

== ENCOUNTER → 2021-08-12 | Outpatient (CLI) | payer MEDICARE, OTHER ==
[~2021-08-12] MED LIST changes: -OMEP-221 PO; +OMEP40CA5 PO; +POTA-151 PO; -POTA20TA6 PO
[2021-08-12 12:06] LABS: HEMATOCRIT 45.5 % (42.0-52.0); HEMOGLOBIN 14.7 g/dl (13.5-17.5); MEAN CORPUSCULAR HGB CONC 32.3 g/dl (32.0-36.5); MEAN CORPUSCULAR VOLUME 98.9 fl (80.0-96.0); PLATELET COUNT, AUTOMATED 201 10^3/uL (150-450); WHITE BLOOD COUNT 6.6 10^3/uL (4.0-10.0)
[2021-08-12 12:18] LABS: INR 2.29; PROTHROMBIN TIME 25.6 SECONDS (12.7-14.5)
[2021-08-12 12:38] LABS: ALBUMIN 3.8 GM/DL (3.2-5.2); ALT/SGPT 17 U/L (12-78); BILIRUBIN,TOTAL 1.4 MG/DL (0.2-1.0); BLOOD UREA NITROGEN 22 MG/DL (7-18); CALCIUM LEVEL 9.3 MG/DL (8.8-10.2); CARBON DIOXIDE LEVEL 33 MEQ/L (21-32); CHLORIDE LEVEL 103 MEQ/L (98-107); CHOLESTEROL LEVEL 132 MG/DL (<200); CHOLESTEROL RISK RATIO 1.859 (<5); CREATININE FOR GFR 1.12 MG/DL (0.70-1.30); GLOMERULAR FILTRATION RATE > 60.0 (>35); GLUCOSE, FASTING 104 MG/DL (70-100); HDL CHOLESTEROL 71 MG/DL (>40); LDL CHOLESTEROL 49 MG/DL (<100); NON-HDL-C 61 MG/DL; POTASSIUM SERUM 3.9 MEQ/L (3.5-5.1); SODIUM LEVEL 141 MEQ/L (136-145); TOTAL PROTEIN 6.7 GM/DL (6.4-8.2); TRIGLYCERIDES LEVEL 62 MG/DL (<150)
== END ==
LOC: M WUC 09:59
PROVIDERS: ATTEND Internal Medicine
DX: E78.5 Hyperlipidemia, unspecified (principal); I48.91 Unspecified atrial fibrillation; I50.9 Heart failure, unspecified

== ENCOUNTER → 2022-03-12 | Outpatient (CLI) | payer MEDICARE, OTHER | LOC: M LABSMTC 11:11 | PROVIDERS: ATTEND Internal Medicine Cardiovascular Disease | DX: I34.0 Nonrheumatic mitral (valve) insufficiency (principal); Z11.52 Encounter for screening for COVID-19 ==

== ENCOUNTER → 2022-06-30 | Outpatient (REF) | payer MEDICARE, OTHER ==
[2022-06-30 12:46] LABS: INR 2.06; PROTHROMBIN TIME 23.6 SECONDS (12.5-14.5)
== END ==
LOC: M LABWUC 11:25
PROVIDERS: ATTEND Internal Medicine
DX: Z79.01 Long term (current) use of anticoagulants (principal); I48.91 Unspecified atrial fibrillation

== ENCOUNTER → 2022-07-30 | Outpatient (CLI) | payer MEDICARE, OTHER ==
[2022-07-30 16:40] LABS: INR 2.37; PROTHROMBIN TIME 26.3 SECONDS (12.5-14.5)
== END ==
LOC: M WUC 13:00
PROVIDERS: ATTEND Internal Medicine
DX: I48.91 Unspecified atrial fibrillation (principal)

== ENCOUNTER → 2022-08-12 | Outpatient (CLI) | payer MEDICARE, OTHER ==
[2022-08-12 13:00] LABS: BASO % 0.5 % (0.0-1.0); EOS # 0.1 10^3/uL (0.0-0.5); EOS % 1.6 % (0.0-3.0); HEMATOCRIT 47.5 % (42.0-52.0); HEMOGLOBIN 14.6 g/dl (13.5-17.5); LYMPH # 2.3 10^3/uL (1.5-5.0); LYMPH % 27.3 % (24.0-44.0); MEAN CORPUSCULAR HEMOGLOBIN 31.5 pg (27.0-33.0); MEAN CORPUSCULAR HGB CONC 30.7 g/dl (32.0-36.5); MEAN CORPUSCULAR VOLUME 102.4 fl (80.0-96.0); MONO # 0.7 10^3/uL (0.0-0.8); MONO % 8.4 % (2.0-8.0); NEUTROPHILS # 5.1 10^3/uL (1.5-8.5); PLATELET COUNT, AUTOMATED 197 10^3/uL (150-450); RED BLOOD COUNT 4.64 10^6/uL (4.30-6.10); WHITE BLOOD COUNT 8.3 10^3/uL (4.0-10.0)
[2022-08-12 13:09] LABS: INR 2.37; PROTHROMBIN TIME 26.3 SECONDS (12.5-14.5)
[2022-08-12 13:53] LABS: ALBUMIN 3.8 G/DL (3.2-5.2); BILIRUBIN,TOTAL 1.3 MG/DL (0.3-1.2); CALCIUM LEVEL 8.7 MG/DL (8.3-10.6); CHOLESTEROL RISK RATIO 2.07 (<5); CREATININE FOR GFR 1.25 MG/DL (0.70-1.30); GLOMERULAR FILTRATION RATE 57.9 (>35); HDL CHOLESTEROL 60.1 MG/DL (>40); LDL CHOLESTEROL 54.3 MG/DL (<100); POTASSIUM SERUM 3.9 MMOL/L (3.5-5.1); TOTAL PROTEIN 6.2 G/DL (5.7-8.2)
== END ==
LOC: M WUC 09:22
PROVIDERS: ATTEND Internal Medicine
DX: I48.91 Unspecified atrial fibrillation (principal); I10 Essential (primary) hypertension; Z79.01 Long term (current) use of anticoagulants; E78.5 Hyperlipidemia, unspecified

== ENCOUNTER → 2022-09-02 | Outpatient (REF) | payer MEDICARE, OTHER ==
[2022-09-02 13:26] LABS: INR 2.64; PROTHROMBIN TIME 28.6 SECONDS (12.5-14.5)
== END ==
LOC: M LABWUC 12:16
PROVIDERS: ATTEND Internal Medicine
DX: I48.91 Unspecified atrial fibrillation (principal)

== ENCOUNTER → 2022-09-23 | Outpatient (CLI) | payer MEDICARE, OTHER | LOC: M WUC 11:02 | PROVIDERS: ATTEND Internal Medicine | DX: R91.8 Other nonspecific abnormal finding of lung field (principal); R06.00 Dyspnea, unspecified ==

== ENCOUNTER → 2022-10-01 | Outpatient (REF) | payer MEDICARE, OTHER ==
[2022-10-01 18:19] LABS: INR 2.14; PROTHROMBIN TIME 24.3 SECONDS (12.5-14.5)
== END ==
LOC: M LABWUC 16:15
PROVIDERS: ATTEND Internal Medicine
DX: I48.91 Unspecified atrial fibrillation (principal)

== ENCOUNTER → 2022-10-28 | Outpatient (CLI) | payer MEDICARE, OTHER ==
[2022-10-28 18:06] LABS: INR 2.37; PROTHROMBIN TIME 26.3 SECONDS (12.5-14.5)
== END ==
LOC: M WUC 11:31
PROVIDERS: ATTEND Internal Medicine
DX: I48.91 Unspecified atrial fibrillation (principal)

== ENCOUNTER → 2022-11-27 | Outpatient (CLI) | payer MEDICARE, OTHER ==
[2022-11-27 17:35] LABS: INR 2.76; PROTHROMBIN TIME 29.6 SECONDS (12.5-14.5)
== END ==
LOC: M WUC 13:09
PROVIDERS: ATTEND Internal Medicine
DX: I48.91 Unspecified atrial fibrillation (principal)

== ENCOUNTER → 2022-12-30 | Outpatient (CLI) | payer MEDICARE, OTHER ==
[2022-12-30 15:50] LABS: INR 2.83; PROTHROMBIN TIME 30.2 SECONDS (12.5-14.5)
== END ==
LOC: M WUC 12:46
PROVIDERS: ATTEND Internal Medicine
DX: I48.91 Unspecified atrial fibrillation (principal)

== ENCOUNTER → 2023-01-28 | Outpatient (REF) | payer MEDICARE, OTHER ==
[2023-01-28 17:32] LABS: INR 2.19; PROTHROMBIN TIME 24.7 SECONDS (12.5-14.5)
== END ==
LOC: M LAB REF 16:16
PROVIDERS: ATTEND Internal Medicine
DX: I48.91 Unspecified atrial fibrillation (principal)

== ENCOUNTER → 2023-02-16 | Outpatient (CLI) | payer MEDICARE, OTHER ==
[2023-02-16 16:27] LABS: HEMATOCRIT 41.6 % (42.0-52.0); HEMOGLOBIN 13.3 g/dl (13.5-17.5); MEAN CORPUSCULAR HEMOGLOBIN 31.7 pg (27.0-33.0); MEAN CORPUSCULAR VOLUME 99.3 fl (80.0-96.0); PLATELET COUNT, AUTOMATED 178 10^3/uL (150-450); RED BLOOD COUNT 4.19 10^6/uL (4.30-6.10); WHITE BLOOD COUNT 7.4 10^3/uL (4.0-10.0)
[2023-02-16 16:42] LABS: INR 2.49; PROTHROMBIN TIME 27.3 SECONDS (12.5-14.5)
[2023-02-16 17:00] LABS: ALBUMIN 3.5 G/DL (3.2-5.2); ALKALINE PHOSPHATASE 64 U/L (46-116); ALT/SGPT 13 U/L (7.0-40); AST/SGOT 17 U/L (<34); BILIRUBIN,TOTAL 1.4 MG/DL (0.3-1.2); BLOOD UREA NITROGEN 25 MG/DL (9-23); CALCIUM LEVEL 8.6 MG/DL (8.3-10.6); CARBON DIOXIDE LEVEL 30 MMOL/L (20-31); CHLORIDE LEVEL 106 MMOL/L (98-107); CHOLESTEROL LEVEL 106 MG/DL (<200); CHOLESTEROL RISK RATIO 1.98 (<5); CREATININE FOR GFR 1.12 MG/DL (0.70-1.30); GLOMERULAR FILTRATION RATE > 60.0 (>35); GLUCOSE, FASTING 76 MG/DL (74-106); HDL CHOLESTEROL 53.5 MG/DL (>40); LDL CHOLESTEROL 43.7 MG/DL (<100); NON-HDL-C 52.5 MG/DL; POTASSIUM SERUM 3.9 MMOL/L (3.5-5.1); SODIUM LEVEL 141 MMOL/L (136-145); TOTAL PROTEIN 5.7 G/DL (5.7-8.2); TRIGLYCERIDES LEVEL 44 MG/DL (<150)
== END ==
LOC: M WUC 14:40
PROVIDERS: ATTEND Internal Medicine
DX: I48.91 Unspecified atrial fibrillation (principal); I50.9 Heart failure, unspecified; E78.5 Hyperlipidemia, unspecified

== ENCOUNTER → 2023-03-19 | Outpatient (REF) | payer MEDICARE, OTHER ==
[2023-03-19 17:17] LABS: INR 3.07; PROTHROMBIN TIME 32.2 SECONDS (12.5-14.5)
== END ==
LOC: M LABWUC 16:26
PROVIDERS: ATTEND Internal Medicine
DX: I48.91 Unspecified atrial fibrillation (principal)

== ENCOUNTER → 2023-03-25 | Outpatient (CLI) | payer MEDICARE, OTHER ==
[2023-03-25 16:28] LABS: INR 2.85; PROTHROMBIN TIME 30.4 SECONDS (12.5-14.5)
== END ==
LOC: M WUC 14:49
PROVIDERS: ATTEND Internal Medicine
DX: I48.91 Unspecified atrial fibrillation (principal); Z79.01 Long term (current) use of anticoagulants

== ENCOUNTER → 2023-04-15 | Outpatient (REF) | payer MEDICARE, OTHER ==
[2023-04-15 17:45] LABS: BLOOD UREA NITROGEN 20 MG/DL (9-23); CALCIUM LEVEL 9.1 MG/DL (8.3-10.6); CARBON DIOXIDE LEVEL 30 MMOL/L (20-31); CHLORIDE LEVEL 105 MMOL/L (98-107); CREATININE FOR GFR 1.13 MG/DL (0.70-1.30); GLOMERULAR FILTRATION RATE > 60.0 (>35); GLUCOSE, FASTING 91 MG/DL (74-106); POTASSIUM SERUM 3.9 MMOL/L (3.5-5.1); SODIUM LEVEL 142 MMOL/L (136-145)
== END ==
LOC: M LABWUC 16:18
PROVIDERS: ATTEND Internal Medicine Cardiovascular Disease
DX: I50.32 Chronic diastolic (congestive) heart failure (principal)

== ENCOUNTER → 2023-05-07 | Outpatient (REF) | payer MEDICARE, OTHER ==
[2023-05-07 19:36] LABS: BLOOD UREA NITROGEN 18 MG/DL (9-23); CALCIUM LEVEL 8.5 MG/DL (8.3-10.6); CARBON DIOXIDE LEVEL 34 MMOL/L (20-31); CHLORIDE LEVEL 103 MMOL/L (98-107); GLOMERULAR FILTRATION RATE > 60.0 (>35); GLUCOSE, FASTING 90 MG/DL (74-106); POTASSIUM SERUM 3.9 MMOL/L (3.5-5.1); SODIUM LEVEL 143 MMOL/L (136-145)
== END ==
LOC: M WUC 16:22
PROVIDERS: ATTEND Internal Medicine Clinical Cardiac Electrophysiology
DX: Z95.0 Presence of cardiac pacemaker (principal); I48.91 Unspecified atrial fibrillation; I49.5 Sick sinus syndrome